=== PATIENT | male | born 1955 | race Caucasian/White ===

== ENCOUNTER 2016-08-11 16:39 | Emergency (ER) | payer BC ==
--- NOTE | 2016-08-11 18:36 | ER Document Report ---
ED General - General Chief Complaint: General Weakness Stated Complaint: WEAKNESS Time Seen by Provider: 08/11/16 17:01 Mode of Arrival: Medic Information source: Patient, Transfer Record Notes: This is a 61-year-old man with a history of dementia, hypertension is brought in by EMS [facility] for generalized weakness. TRAVEL OUTSIDE OF THE [place] IN LAST 30 DAYS: No - HPI Onset: Just prior to arrival Onset/Duration: Gradual Quality of pain: No pain Severity: None Pain Level: Denies Associated symptoms: denies: Chest pain, Fever, Shortness of breath Exacerbated by: Denies Relieved by: Denies Similar symptoms previously: No Recently seen / treated by doctor: No - Related Data Allergies/Adverse Reactions: atorvastatin calcium [From Lipitor] Allergy (Verified 07/04/15 20:44) gadobenate dimeglumine [From Multihance] Allergy (Verified 07/04/15 20:45) Penicillins Allergy (Verified 07/04/15 20:45) Anaphylaxis VAUGHN Inhibitors Adverse Reaction (Verified 07/04/15 20:45) Past Medical History - General Information source: Patient, Outside Facility Records - Social History Smoking Status: Never Smoker Cigarette use (# per day): No Chew tobacco use (# tins/day): No Frequency of alcohol use: None Drug Abuse: None Lives with: Long-Term Family History: Reviewed & Not Pertinent Patient has suicidal ideation: No Patient has homicidal ideation: No - Past Medical History Cardiac Medical History: Reports: Hx Hypertension Pulmonary Medical History: Reports: Hx Asthma, Hx Bronchitis Renal/ Medical History: Reports: Hx Renal Insufficiency Review of Systems - Review of Systems Constitutional: denies: Chills, Fever EENT: No symptoms reported Cardiovascular: No symptoms reported Respiratory: No symptoms reported Gastrointestinal: No symptoms reported Genitourinary: No symptoms reported Male Genitourinary: No symptoms reported Musculoskeletal: No symptoms reported Skin: No symptoms reported Hematologic/Lymphatic: No symptoms reported Neurological/Psychological: See HPI Physical Exam - Vital signs Vitals: Temp Pulse Resp BP Pulse Ox 97.9 F 60 16 183/100 H 100 08/11/16 16:54 08/11/16 16:54 08/11/16 16:54 08/11/16 16:54 08/11/16 16:54 Notes: Physical exam: GENERAL: 61-year-old man, alert and oriented 3, no acute distress HEAD: Atraumatic, normocephalic. EYES: Pupils equal round and reactive to light, extraocular movements intact, sclera anicteric, conjunctiva are normal. ENT: TMs normal, nares patent, oropharynx clear without exudates. Moist mucous membranes. NECK: Normal range of motion, supple without lymphadenopathy or JVD. LUNGS: Breath sounds clear to auscultation bilaterally and equal. No wheezes rales or rhonchi. HEART: Regular rate and rhythm without murmurs, rubs or gallops. ABDOMEN: Soft, normoactive bowel sounds. No tenderness to palpation. No guarding, no rebound. No masses appreciated. EXTREMITIES: Normal range of motion, no pitting or edema. No clubbing or cyanosis. NEUROLOGICAL: Cranial nerves II through XII grossly intact. Normal speech, normal gait. PSYCH: Normal mood, normal affect. SKIN: Warm, Dry, normal turgor, no rashes or lesions noted. Course - Vital Signs Vital signs: Temp Pulse Resp BP Pulse Ox 97.9 F 60 20 153/84 H 99 08/11/16 16:54 08/11/16 16:54 08/11/16 20:56 08/11/16 20:56 08/11/16 20:01 - Laboratory Result Diagrams: 08/11/16 18:26 08/11/16 19:59 Laboratory results interpreted by me: 08/11/16 19:59 Sodium 145.6 H Chloride 109 H - Diagnostic Test Radiology reviewed: Image reviewed, Reports reviewed - Patient has no infiltrates - EKG Interpretation by Me Rate: Normal Rhythm: NSR - Patient has sinus bradycardia with a ventricular rate of [address]-T wave changes. Discharge - Discharge Clinical Impression: Generalized weakness Condition: Stable Disposition: HOME, SELF-CARE Additional Instructions: Chest x-ray was clear. The urine test was normal. The blood work looked good tonight. Patient was given IV fluids and observed on heart monitor Recommendations: Current medicines. Follow-up with primary care doctor Return to the emergency room for any problems
--- NOTE | 2016-08-11 18:36 | RADIOLOGY REPORT (SQ) ---
EXAM DESCRIPTION: CHEST SINGLE VIEW COMPLETED DATE/TIME: 08/11/2016 6:26 pm REASON FOR STUDY: weakness COMPARISON: 07/04/2015 EXAM PARAMETERS: NUMBER OF VIEWS: One view. TECHNIQUE: Single frontal radiographic view of the chest acquired. RADIATION DOSE: NA LIMITATIONS: None. FINDINGS: LUNGS AND PLEURA: No opacities, masses or pneumothorax. No pleural effusion. MEDIASTINUM AND HILAR STRUCTURES: No masses. Contour normal. HEART AND VASCULAR STRUCTURES: Heart normal in size. Normal vasculature. BONES: No acute findings. HARDWARE: None in the chest. OTHER: No other significant finding. IMPRESSION: NO ACUTE RADIOGRAPHIC FINDING IN THE CHEST. TECHNICAL DOCUMENTATION: JOB ID: [id number]
[2016-08-11 18:39] LABS: ABSOLUTE EOSINOPHILS # (AUTO) 0.1 10^3/uL (0.0-0.6); ABSOLUTE LYMPHOCYTES (AUTO) 1.2 10^3/uL (0.5-4.7); ABSOLUTE MONOCYTES (AUTO) 0.5 10^3/uL (0.1-1.4); BASOPHILS % (AUTO) 0.6 % (0-2); HEMATOCRIT 42.7 % (37.9-51.0); HEMOGLOBIN 14.4 g/dL (13.5-17.0); HGB HCT DIFFERENCE 0.5; LYMPHOCYTES % (AUTO) 15.6 % (13-45); MEAN CORPUSCULAR HEMOGLOBIN 31.1 pg (27.0-33.4); MEAN CORPUSCULAR HGB CONC 33.6 g/dL (32.0-36.0); MEAN CORPUSCULAR VOLUME 92 fl (80-97); MONOCYTES % (AUTO) 6.1 % (3-13); RED BLOOD COUNT 4.63 10^6/uL (4.35-5.55); RED CELL DISTRIBUTION WIDTH 13.5 % (11.5-14.0); SEGMENTED NEUTROPHILS % (AUTO) 76.7 % (42-78); WHITE BLOOD COUNT 7.9 10^3/uL (4.0-10.5)
[2016-08-11 18:46] LABS: APPEARANCE,URINE CLEAR; BILIRUBIN,URINE NEGATIVE (NEGATIVE); GLUCOSE, URINE NEGATIVE (NEGATIVE); KETONES,URINE NEGATIVE (NEGATIVE); LEUKOCYTE ESTERASE,URINE NEGATIVE (NEGATIVE); NITRITE,URINE NEGATIVE (NEGATIVE); PROTEIN,URINE NEGATIVE (NEGATIVE); URINE SPECIFIC GRAVITY 1.006; UROBILINOGEN,URINE NEGATIVE mg/dL (<2.0)
[2016-08-11 20:34] LABS: ALANINE AMINOTRANSFERASE 33 U/L (21-72); ALBUMIN 4.2 g/dL (3.5-5.0); ALKALINE PHOSPHATASE 75 U/L (38-126); ANION GAP 13 (5-19); ASPARTATE AMINO TRANSFERASE 24 U/L (17-59); BILIRUBIN,DIRECT 0.3 mg/dL (0.0-0.4); BILIRUBIN,TOTAL 0.5 mg/dL (0.2-1.3); BLOOD UREA NITROGEN 16 mg/dL (7-20); CALCIUM 9.6 mg/dL (8.4-10.2); CARBON DIOXIDE 24 mmol/L (22-30); CHLORIDE 109 mmol/L (98-107); CREATINE KINASE 101 U/L (55-170); CREATININE RESULT 0.95 mg/dL (0.52-1.25); GLUCOSE 86 mg/dL (75-110); POTASSIUM 3.8 mmol/L (3.6-5.0); SODIUM 145.6 mmol/L (137-145); TOTAL PROTEIN 6.7 g/dL (6.3-8.2)
[2016-08-11 20:59] VITALS: BP 153/84
--- NOTE | 2016-08-11 22:23 | EKG REPORT ---
SEVERITY:- OTHERWISE NORMAL ECG - SINUS BRADYCARDIA ATRIAL PREMATURE COMPLEX : Confirmed by: Tasha Martinez 11-Aug-2016 22:22:56
== END 2016-08-11 21:42 | disposition home or self-care (01) ==
LOC: ER 16:39
DX: R53.1 Weakness (principal); R00.1 Bradycardia, unspecified; I10 Essential (primary) hypertension; J45.909 Unspecified asthma, uncomplicated; Z91.041 Radiographic dye allergy status; Z88.8 Allergy status to other drugs, medicaments and biological substances; Z87.892 Personal history of anaphylaxis; Z88.0 Allergy status to penicillin
CPT/HCPCS: 36415; 71010; 80053; 81001; 82550; 82553; 85025; 93005; 93010; 99285

== ENCOUNTER 2016-08-18 18:29 | Emergency (ER) | payer BC ==
[2016-08-18 19:33] LABS: ABSOLUTE BASOPHILS # (AUTO) 0.1 10^3/uL (0.0-0.2); ABSOLUTE EOSINOPHILS # (AUTO) 0.1 10^3/uL (0.0-0.6); ABSOLUTE LYMPHOCYTES (AUTO) 1.2 10^3/uL (0.5-4.7); ABSOLUTE MONOCYTES (AUTO) 0.5 10^3/uL (0.1-1.4); ABSOLUTE NEUT (AUTO) 5.8 10^3/uL (1.7-8.2); BASOPHILS % (AUTO) 0.7 % (0-2); EOSINOPHILS % (AUTO) 1.6 % (0-6); HEMATOCRIT 42.9 % (37.9-51.0); HEMOGLOBIN 14.7 g/dL (13.5-17.0); HGB HCT DIFFERENCE 1.2; LYMPHOCYTES % (AUTO) 15.5 % (13-45); MEAN CORPUSCULAR HEMOGLOBIN 31.6 pg (27.0-33.4); MEAN CORPUSCULAR HGB CONC 34.3 g/dL (32.0-36.0); MEAN CORPUSCULAR VOLUME 92 fl (80-97); RED BLOOD COUNT 4.67 10^6/uL (4.35-5.55); RED CELL DISTRIBUTION WIDTH 13.8 % (11.5-14.0); SEGMENTED NEUTROPHILS % (AUTO) 76.2 % (42-78); WHITE BLOOD COUNT 7.6 10^3/uL (4.0-10.5)
--- NOTE | 2016-08-18 19:45 | ER Document Report ---
ED General - General Chief Complaint: Probable Seizure Stated Complaint: POSSIBLE SEIZURE Time Seen by Provider: 08/18/16 18:43 Mode of Arrival: Medic Information source: Patient Notes: 61-year-old male history of seizure disorder presents from care facility was noted that he sat down and stated that he was going to have a seizure. Seizure was unwitnessed. Patient otherwise denied any other complaints, it was noted he is on [employer] TRAVEL OUTSIDE OF THE [place] IN LAST 30 DAYS: No - HPI Onset: Just prior to arrival Onset/Duration: Sudden Quality of pain: No pain Severity: None Pain Level: Denies Associated symptoms: Other - Feels tired Exacerbated by: Denies Relieved by: Denies Similar symptoms previously: Yes Recently seen / treated by doctor: Yes - Related Data Allergies/Adverse Reactions: atorvastatin calcium [From Lipitor] Allergy (Verified 08/18/16 18:48) gadobenate dimeglumine [From Multihance] Allergy (Verified 08/18/16 18:48) Penicillins Allergy (Verified 08/18/16 18:48) Anaphylaxis VAUGHN Inhibitors Adverse Reaction (Verified 08/18/16 18:48) Past Medical History - Social History Smoking Status: Never Smoker Cigarette use (# per day): No Chew tobacco use (# tins/day): No Smoking Education Provided: No Frequency of alcohol use: None Drug Abuse: None Family History: Reviewed & Not Pertinent Patient has suicidal ideation: No Patient has homicidal ideation: No - Past Medical History Cardiac Medical History: Reports: Hx Hypertension Pulmonary Medical History: Reports: Hx Asthma, Hx Bronchitis Renal/ Medical History: Reports: Hx Renal Insufficiency. Denies: Hx Peritoneal Dialysis - Immunizations Hx Diphtheria, Pertussis, Tetanus Vaccination: Yes Review of Systems - Review of Systems Notes: REVIEW OF SYSTEMS: CONSTITUTIONAL : Denies fever, chills, or sweats. Denies recent illness. EENT: Denies eye, ear, throat, or mouth pain or symptoms. Denies nasal or sinus congestion or discharge. Denies throat, tongue, or mouth swelling or difficulty swallowing. CARDIOVASCULAR: Denies chest pain. Denies palpitations or racing or irregular heart beat. Denies ankle edema. RESPIRATORY: Denies cough, cold, or chest congestion. Denies shortness of breath, difficulty breathing, or wheezing. GASTROINTESTINAL: Denies abdominal pain or distention. Denies nausea, vomiting , or diarrhea. Denies blood in vomitus, stools, or per rectum. Denies black, tarry stools. Denies constipation. GENITOURINARY: Denies difficulty urinating, painful urination, burning, frequency, blood in urine, or discharge. MUSCULOSKELETAL: Denies back or neck pain or stiffness. Denies joint pain or swelling. SKIN: Denies rash, lesions or sores. HEMATOLOGIC : Denies easy bruising or bleeding. LYMPHATIC: Denies swollen, enlarged glands. NEUROLOGICAL: This is a seizure-like episode PSYCHIATRIC: Denies anxiety or stress. Denies depression, suicidal ideation, or homicidal ideation. ALL OTHER SYSTEMS REVIEWED AND NEGATIVE. Dictation was performed using [employer] voice recognition software PHYSICAL EXAMINATION: GENERAL: Well-appearing, well-nourished and in no acute distress. HEAD: Atraumatic, normocephalic. EYES: Pupils equal round and reactive to light, extraocular movements intact, sclera anicteric, conjunctiva are normal. ENT: Nares patent, oropharynx clear without exudates. Moist mucous membranes. NECK: Normal range of motion, supple without lymphadenopathy LUNGS: Breath sounds clear to auscultation bilaterally and equal. No wheezes rales or rhonchi. HEART: Regular rate and rhythm without murmurs ABDOMEN: Soft, nontender, nondistended abdomen. No guarding, no rebound. No masses appreciated. Musculoskeletal: Normal range of motion, no pitting or edema. No cyanosis. NEUROLOGICAL: Cranial nerves grossly intact. Normal speech, normal gait. Normal sensory, motor exams PSYCH: Normal mood, normal affect. SKIN: Warm, Dry, normal turgor, no rashes or lesions noted. Physical Exam - Vital signs Vitals: Temp Pulse Resp BP Pulse Ox 98.4 F 56 L 20 173/95 H 98 08/18/16 18:49 08/18/16 18:49 08/18/16 18:49 08/18/16 18:49 08/18/16 18:49 Course - Re-evaluation Re-evalutation: 08/18/16 19:45 Lab work pending, given that patient has a history of seizure disorders I do not expect any life-threatening issues, the seizure itself was not witnessed however it is probable the patient had one and may be secondary to medication noncompliance 08/18/16 20:03 Lab work looks well at this time, I do not see any specific cause of the patient 's seizure which I does believe is secondary to his underlying history. Patient will be discharged at this time [facility] pending After performing a Medical Screening Examination, I estimate there is LOW risk for INTRACRANIAL HEMORRHAGE, ISCHEMIC CVA, MALIGNANT DYSRHYTHMIA, ACUTE CORONARY SYNDROME, MENINGITIS, PULMONARY EMBOLISM, or SEPSIS thus I consider the discharge disposition reasonable. I have reevaluated this patient multiple times and no significant life threatening changes are noted. The patient and I have discussed the diagnosis and risks, and we agree with discharging home with close follow-up with the understanding that symptoms and presentations can change. We also discussed returning to the Emergency Department immediately if new or worsening symptoms occur. We have discussed the symptoms which are most concerning (e.g., changing or worsening pain, weakness, vomiting, fever) that necessitate immediate return. - Vital Signs Vital signs: Temp Pulse Resp BP Pulse Ox 98.4 F 56 L 20 173/95 H 98 08/18/16 18:49 08/18/16 18:49 08/18/16 18:49 08/18/16 18:49 08/18/16 18:49 - Laboratory Result Diagrams: 08/18/16 19:17 08/18/16 19:17 Laboratory results interpreted by me: 08/18/16 19:17 Potassium 3.5 L Discharge - Discharge Clinical Impression: Seizure HTN (hypertension) Qualifiers: Hypertension type: essential hypertension Qualified Code(s): I10 - Essential ( primary) hypertension Condition: Stable Disposition: HOME, SELF-CARE Instructions: Seizure, Known Epileptic ([facility]) Additional Instructions: Follow up with your physician tomorrow for further care or return to the ED IMMEDIATELY if symptoms worsen or new concerns occur. If you cannot afford to follow up with your primary care physician a list of low cost clinics have been provided at the end of your discharge papers as well.
[2016-08-18 19:50] LABS: ALANINE AMINOTRANSFERASE 35 U/L (21-72); ALKALINE PHOSPHATASE 76 U/L (38-126); ANION GAP 10 (5-19); ASPARTATE AMINO TRANSFERASE 32 U/L (17-59); BILIRUBIN,DIRECT 0.3 mg/dL (0.0-0.4); BILIRUBIN,TOTAL 0.6 mg/dL (0.2-1.3); BLOOD UREA NITROGEN 17 mg/dL (7-20); CALCIUM 9.3 mg/dL (8.4-10.2); CARBON DIOXIDE 28 mmol/L (22-30); CHLORIDE 107 mmol/L (98-107); CREATININE RESULT 0.97 mg/dL (0.52-1.25); GLUCOSE 84 mg/dL (75-110); POTASSIUM 3.5 mmol/L (3.6-5.0); SODIUM 144.8 mmol/L (137-145); TOTAL PROTEIN 6.5 g/dL (6.3-8.2)
[2016-08-18 21:32] VITALS: BP 146/77
== END 2016-08-18 20:50 | disposition home or self-care (01) ==
LOC: ER 18:29
DX: G40.909 Epilepsy, unspecified, not intractable, without status epilepticus (principal); I10 Essential (primary) hypertension; J45.909 Unspecified asthma, uncomplicated; Z79.899 Other long term (current) drug therapy; Z88.8 Allergy status to other drugs, medicaments and biological substances; Z87.892 Personal history of anaphylaxis; Z88.0 Allergy status to penicillin
CPT/HCPCS: 36415; 80053; 85025; 99284

== ENCOUNTER 2016-08-20 00:10 | Emergency (ER) | payer BC ==
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
[2016-08-20] MEDS ORDERED: LORAZEPAM INJ 2 MG/1 ML VIAL ONE (01:07)
[2016-08-20 03:54] VITALS: BP 147/92
== END 2016-08-20 03:53 | disposition home or self-care (01) ==
LOC: ER 00:10
DX: R56.9 Unspecified convulsions (principal); F03.91 Unspecified dementia, unspecified severity, with behavioral disturbance; R53.1 Weakness
CPT/HCPCS: 99283

== ENCOUNTER 2016-08-23 01:20 | Emergency (ER) | payer BC ==
[2016-08-23] MEDS ORDERED: DIPH/PERTUSS(ACELL)/TETANUS VAC/PF 0.5 ML SYR (>=10YO) IM ONE (01:37)
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
[2016-08-23 03:11] VITALS: BP 132/71
== END 2016-08-23 03:15 ==
LOC: ER 01:20
DX: S40.812A Abrasion of left upper arm, initial encounter (principal); S40.811A Abrasion of right upper arm, initial encounter; S00.412A Abrasion of left ear, initial encounter; S10.91XA Abrasion of unspecified part of neck, initial encounter; F03.90 Unspecified dementia, unspecified severity, without behavioral disturbance, psychotic disturbance, mood disturbance, and anxiety; Y04.0XXA Assault by unarmed brawl or fight, initial encounter; Y92.129 Unspecified place in nursing home as the place of occurrence of the external cause; I10 Essential (primary) hypertension; Z23 Encounter for immunization; Z88.0 Allergy status to penicillin
CPT/HCPCS: 90471; 90715; 99284

== ENCOUNTER 2016-09-05 12:01 | Emergency (ER) | payer BC ==
--- NOTE | 2016-09-05 12:14 | ER Document Report ---
ED Psych Disorder / Suicide <BENOIT SEWELL - Last Filed: 09/05/16 15:16> - General Mode of Arrival: Medic Information source: Patient TRAVEL OUTSIDE OF THE [place]. IN LAST 30 DAYS: No <AUREA HUBBARD - Last Filed: 09/05/16 16:07> - General Chief Complaint: Psych Problem Stated Complaint: IVC W/PAPERS Time Seen by Provider: 09/05/16 12:14 Notes: 61 yo male resident of [facility] with known dx MS, dementia, encephalopathy, seizure was sent from [facility] with IVC paperwork because he is a danger to self by turning furniture over, violent behavior. c/o feet pain. He thinks he liveds with his sister, does not know the day. Vitals stable, follows commands but has intentional tremors. Does not know his doctor. Previously sent to [facility] ER 3 times in july with difficult behavior. Dr. Rodrigues report APS with concerns about facility treatment. States his feet hurt. ( AUREA HUBBARD) - HPI Notes: Conducted initial psychiatric evaluation on 09/05/2016 at 1410. Patient is a 61 year old male who presented to the ED today via [facility], petitioned for IVC by [facility] for increased aggression and agitation. Most information has been obtained from collateral, worker at [facility] (See Tj Gonzalez's ED Mental Health note). He reportedly threw things around his room and has bruises from doing so, has been taking things apart (door and window frames), and flipping bed. He has a documented medical history of MS, Dementia, Encephalopathy, and Seizure Disorder. Home medications include a BP medication, a inhaler, Keppra 500MG BID, and Vistaril 25MG PRN. He has no documented MH history. He has a scheduled appointment tomorrow (12/07/2016) at 0800 at [facility] for medication management. Patient has been residing at [facility] since 07/11/2016. He started out with general confusion. Chart review had a head CT dated 07/04/2015 with the following findings: prominent ventricles, areas of low density in the white matter most likely due to chronic micro-vascular ischemic changes, and age related involutional changes. Language consistent with neuro-degenerative processes like that found in dementia. Patient was alert. He knew he resided at [facility]. He was able to recall his birthday. He had been calm and cooperative while in the ED, allowing medical staff to obtain all necessary lab work. He denied SI/HI. He did not appear to be responding to internal stimuli AEB fair eye contact and answering questions appropriately when addressed. Thought processes are impaired due to neuro-degenerative processes. Conversational speech was soft in tone and somewhat mumbled at times. Intellectual abilities are impaired due to neuro- degenerative processes. Insight, judgment and impulse control are impaired but considered baseline due to neuro-degenerative processes. 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 Patient does not meet [place] [address] [address] [address] IVC criteria. He has documented dementia with no MH history. He denied SI/ HI and there is no observed psychosis. He has been calm and cooperative in the ED. Per [facility] he has an outpatient appointment at [facility] tomorrow () at 0800 at [facility]. This provider is the one who will provide medication adjustments based on patient's presentation, recent behaviors, and documented dementia. Consulted with Dr. Aragon regarding the management and care of patient. (BENOIT SEWELL) - Related Data Allergies/Adverse Reactions: atorvastatin calcium [From Lipitor] Allergy (Verified 08/18/16 18:48) gadobenate dimeglumine [From Multihance] Allergy (Verified 08/18/16 18:48) Penicillins Allergy (Verified 08/18/16 18:48) Anaphylaxis VAUGHN Inhibitors Adverse Reaction (Verified 08/18/16 18:48) Past Medical History - General Information source: Patient - Social History Smoking Status: Unknown if Ever Smoked Frequency of alcohol use: None Drug Abuse: None Lives with: Other - [facility] Family History: Reviewed & Not Pertinent - Past Medical History Cardiac Medical History: Reports: Hx Hypertension Pulmonary Medical History: Reports: Hx Asthma, Hx Bronchitis Neurological Medical History: Reports: Other - dementia Renal/ Medical History: Reports: Hx Renal Insufficiency. Denies: Hx Peritoneal Dialysis Psychiatric Medical History: Reports: Hx Dementia Surgical Hx: Negative - Immunizations Hx Diphtheria, Pertussis, Tetanus Vaccination: Yes <AUREA HUBBARD - Last Filed: 09/05/16 16:07> Review of Systems - Review of Systems Constitutional: No symptoms reported EENT: No symptoms reported Cardiovascular: No symptoms reported Respiratory: No symptoms reported Gastrointestinal: No symptoms reported Genitourinary: No symptoms reported Male Genitourinary: No symptoms reported Musculoskeletal: See HPI Skin: No symptoms reported Hematologic/Lymphatic: No symptoms reported Neurological/Psychological: No symptoms reported <AUREA HUBBARD - Last Filed: 09/05/16 16:07> Physical Exam <BENOIT SEWELL - Last Filed: 09/05/16 15:16> - Vital signs Interpretation: Normal - General General appearance: Appears well, Other - sleepy - HEENT Head: Normocephalic, Atraumatic Eyes: Normal Conjunctiva: Normal Pupils: PERRL Mouth/Lips: Normal Mucous membranes: Dry Pharynx: Normal Neck: Supple. No: Lymphadenopathy - Respiratory Respiratory status: No respiratory distress Chest status: Nontender Breath sounds: Normal Chest palpation: Normal - Cardiovascular Rhythm: Regular Heart sounds: Normal auscultation Murmur: No - Abdominal Inspection: Normal Distension: No distension Bowel sounds: Normal Tenderness: Nontender. No: Tender Organomegaly: No organomegaly - Back Back: Normal, Nontender. No: CVA tenderness - Extremities General upper extremity: Normal inspection, Nontender, Normal color, Normal ROM , Normal temperature General lower extremity: Normal inspection, Nontender, Normal color, Normal ROM , Normal temperature, Normal weight bearing. No: Benedict's sign Ankle: Tender Foot: Tender, Other - red vasculitis type rash to both ankles - Neurological Neuro grossly intact: Yes Cognition: Normal Orientation: AAOx4 [place] Coma Scale Eye Opening: Spontaneous Fritz Coma Scale Verbal: Oriented [place] Coma Scale Motor: Obeys Commands [place] Coma Scale Total: 15 Speech: Normal Motor strength normal: LUE, RUE, LLE, RLE Sensory: Normal - Psychological Associated symptoms: Normal affect, Normal mood - Skin Skin Temperature: Warm Skin Moisture: Dry Skin Color: Normal <AUREA HUBBARD - Last Filed: 09/05/16 16:07> - Vital signs Vitals: Temp Pulse Resp BP Pulse Ox 98.0 F 53 L 16 129/83 H 97 09/05/16 12:16 09/05/16 12:16 09/05/16 12:16 09/05/16 12:16 09/05/16 12:16 - General Notes: calm (AUREA HUBBARD) Course - Laboratory Result Diagrams: 09/05/16 12:39 09/05/16 12:39 <BENOIT SEWELL - Last Filed: 09/05/16 15:16> - Laboratory Result Diagrams: 09/05/16 12:39 09/05/16 12:39 - EKG Interpretation by Me EKG shows normal: Sinus rhythm Rate: Bradycardia - rate 51 <AUREA HUBBARD - Last Filed: 09/05/16 16:07> - Re-evaluation Re-evalutation: 09/05/16 14:55 dr. alarcon examined the pts legs also, OK with the clindamycin, and since platelets normal on CBC, can be discharged back to [facility]. pending urine results 09/05/16 15:54 other labs are negative. tox negative, urine negative. 09/05/16 16:06 friendly is going to get the pt but he is up pacing and wanting to walk out, getting angry. Hydroxyzine ordered. IM (AUREA HUBBARD) - Vital Signs Vital signs: Temp Pulse Resp BP Pulse Ox 98.0 F 53 L 16 129/83 H 97 09/05/16 12:16 09/05/16 12:16 09/05/16 12:16 09/05/16 12:16 09/05/16 12:16 - Laboratory Laboratory results interpreted by me: 09/05/16 09/05/16 09/05/16 12:39 12:39 14:30 RBC 4.27 L Hgb 13.4 L Seg Neutrophils % 82.8 H Lymphocytes % 10.4 L Potassium 3.5 L Urine Ketones TRACE H Urine Blood SMALL H Salicylates < 1.0 L Acetaminophen < 10 L Discharge <BENOIT SEWELL - Last Filed: 09/05/16 15:16> <AUREA HUBBARD - Last Filed: 09/05/16 16:07> - Discharge Clinical Impression: bilateral lower leg peripheral edema, cellulitis ankles/feet, Aggression aggravated Condition: Fair Disposition: HOME, SELF-CARE Instructions: Elevate the Injury ([facility]), Cellulitis ([facility]), Clindamycin ([facility]) Additional Instructions: Dementia The exam shows a decrease in mental ability called dementia. Signs of dementia include a gradual loss of memory and a decreased ability to reason and solve problems. Personality changes, hostility, lack of self-care, and loss of bladder or bowel control are later signs of dementia. In these later stages, patients may become confused, lost, fearful, or agitated, even in familiar places. Alzheimer's disease is the most common type of dementia. It has no known cause or specific treatment. Other causes include alcohol and drug abuse, medication effects (especially tranquilizers and sleeping pills), strokes, head injuries, and brain tumors. Sometimes severe depression in an elderly person is mistaken for dementia, and this can be treated if recognized. A complete medical evaluation and ongoing care with a doctor is important. Most people with dementia need help or supervision with daily living. Some may be able to live independently with occasional help; others require foster care or even care home placement. Alcohol, sedatives, and antihistamines may make the symptoms worse and should be avoided. Alzheimer's disease support groups are available in some communities and can be very valuable to the entire family. Prescription medication can ease the symptoms of Alzheimer's disease in some patients. Please arrange for medical follow-up. Return here if there is a sudden change in mental function, inability to move an arm or leg, inability to speak, fever, or any other significant change. You should go to your already scheduled appointment at [facility] tomorrow (09/06/2016 ) at 0800. 1. elevate the legs to reduce the swelling 2. take the clindamycin for the infection in the ankle skin 3 return to er if increased pain or fever Prescriptions: Clindamycin HCl [Cleocin 150 mg Capsule] 300 mg PO TID #42 capsule Referrals: [facility] [Outside] - 09/06/16 8:00 am
[2016-09-05 12:26] VITALS: BP 129/83
[2016-09-05] MEDS ORDERED: CLINDAMYCIN HCL 150 MG CAPSULE PO ONE (12:29)
[2016-09-05 12:47] LABS: ABSOLUTE BASOPHILS # (AUTO) 0.1 10^3/uL (0.0-0.2); ABSOLUTE EOSINOPHILS # (AUTO) 0.1 10^3/uL (0.0-0.6); ABSOLUTE LYMPHOCYTES (AUTO) 0.9 10^3/uL (0.5-4.7); ABSOLUTE MONOCYTES (AUTO) 0.5 10^3/uL (0.1-1.4); ABSOLUTE NEUT (AUTO) 7.4 10^3/uL (1.7-8.2); BASOPHILS % (AUTO) 0.7 % (0-2); EOSINOPHILS % (AUTO) 0.9 % (0-6); HEMATOCRIT 39.6 % (37.9-51.0); HEMOGLOBIN 13.4 g/dL (13.5-17.0); HGB HCT DIFFERENCE 0.6; LYMPHOCYTES % (AUTO) 10.4 % (13-45); MEAN CORPUSCULAR HEMOGLOBIN 31.5 pg (27.0-33.4); MEAN CORPUSCULAR VOLUME 93 fl (80-97); MONOCYTES % (AUTO) 5.2 % (3-13); RED BLOOD COUNT 4.27 10^6/uL (4.35-5.55); RED CELL DISTRIBUTION WIDTH 13.4 % (11.5-14.0); SEGMENTED NEUTROPHILS % (AUTO) 82.8 % (42-78); WHITE BLOOD COUNT 8.9 10^3/uL (4.0-10.5)
--- NOTE | 2016-09-05 12:56 | EKG REPORT ---
SEVERITY:- NORMAL ECG - SINUS RHYTHM : Confirmed by: Brayden Lozano MD 05-Sep-2016 12:55:19
[2016-09-05 13:17] LABS: ALANINE AMINOTRANSFERASE 36 U/L (21-72); ALBUMIN 3.8 g/dL (3.5-5.0); ALKALINE PHOSPHATASE 73 U/L (38-126); ANION GAP 9 (5-19); ASPARTATE AMINO TRANSFERASE 28 U/L (17-59); BILIRUBIN,DIRECT 0.3 mg/dL (0.0-0.4); BILIRUBIN,TOTAL 0.6 mg/dL (0.2-1.3); BLOOD UREA NITROGEN 20 mg/dL (7-20); CALCIUM 8.9 mg/dL (8.4-10.2); CARBON DIOXIDE 27 mmol/L (22-30); CHLORIDE 107 mmol/L (98-107); CREATININE RESULT 0.92 mg/dL (0.52-1.25); GLUCOSE 83 mg/dL (75-110); POTASSIUM 3.5 mmol/L (3.6-5.0); SODIUM 143.2 mmol/L (137-145); TOTAL PROTEIN 6.4 g/dL (6.3-8.2)
[2016-09-05 13:19] LABS: ALCOHOL < 10 mg/dL (NONE DETECTED)
[2016-09-05 15:06] LABS: APPEARANCE,URINE CLEAR; BILIRUBIN,URINE NEGATIVE (NEGATIVE); GLUCOSE, URINE NEGATIVE (NEGATIVE); KETONES,URINE TRACE mg/dL (NEGATIVE); LEUKOCYTE ESTERASE,URINE NEGATIVE (NEGATIVE); NITRITE,URINE NEGATIVE (NEGATIVE); PROTEIN,URINE NEGATIVE (NEGATIVE); URINE SPECIFIC GRAVITY 1.023; UROBILINOGEN,URINE NEGATIVE mg/dL (<2.0)
[2016-09-05 15:23] LABS: URINE BARBITURATES SCREEN NEGATIVE; URINE METHADONE SCREEN NEGATIVE; URINE OPIATES LOW NEGATIVE; URINE PHENCYCLIDINE SCREEN NEGATIVE
[2016-09-05] MEDS ORDERED: HYDROXYZINE HCL INJ 50 MG/1 ML VIAL IM ONE (16:00)
== END 2016-09-05 17:07 | disposition home or self-care (01) ==
LOC: ER 12:01
DX: L03.116 Cellulitis of left lower limb (principal); L03.115 Cellulitis of right lower limb; R60.0 Localized edema; F91.9 Conduct disorder, unspecified; G35 Multiple sclerosis; F03.90 Unspecified dementia, unspecified severity, without behavioral disturbance, psychotic disturbance, mood disturbance, and anxiety; Z79.899 Other long term (current) drug therapy
CPT/HCPCS: 93005; 99284; 96372; 36415; 80307 ×4; 85025; 80053; 81001; 93010; J3490

== ENCOUNTER 2016-09-08 15:03 | Emergency (ER) | payer BC ==
--- NOTE | 2016-09-08 15:09 | ER Document Report ---
ED General - General Chief Complaint: Psych Problem Stated Complaint: PSYCH EVAL Time Seen by Provider: 09/08/16 15:05 Notes: The patient is a 61 yo male, PMHx MS, Dementia, Encephalopathy, and Seizure Disorder, presents from [facility] after he was having jerking motions. Patient will stop when he is asked. Patient was given his Keppra dose this morning and there is no missed doses according to the intermediate records. Patient has become increasingly agitated and violent in the intermediate. There are reports of him punching a wall. Patient denies any complaints at this time. TRAVEL OUTSIDE OF THE [place] IN LAST 30 DAYS: No - Related Data Allergies/Adverse Reactions: atorvastatin calcium [From Lipitor] Allergy (Verified 08/18/16 18:48) gadobenate dimeglumine [From Multihance] Allergy (Verified 08/18/16 18:48) Penicillins Allergy (Verified 08/18/16 18:48) Anaphylaxis VAUGHN Inhibitors Adverse Reaction (Verified 08/18/16 18:48) Past Medical History - General Information source: Patient, Emergency Med Personnel - Social History Smoking Status: Unknown if Ever Smoked Family History: Reviewed & Not Pertinent - Past Medical History Cardiac Medical History: Reports: Hx Hypertension Pulmonary Medical History: Reports: Hx Asthma, Hx Bronchitis Renal/ Medical History: Reports: Hx Renal Insufficiency. Denies: Hx Peritoneal Dialysis Psychiatric Medical History: Reports: Hx Dementia - Immunizations Hx Diphtheria, Pertussis, Tetanus Vaccination: Yes Review of Systems - Review of Systems Notes: REVIEW OF SYSTEMS: CONSTITUTIONAL: -fevers, -chills EENT: -eye pain, -difficulty swallowing, -nasal congestion CARDIOVASCULAR:-chest pain, -syncope. RESPIRATORY: -cough, -SOB GASTROINTESTINAL: -abdominal pain, - nausea, -vomiting, -diarrhea GENITOURINARY: -dysuria, -hematuria MUSCULOSKELETAL: -back pain, -neck pain SKIN: -rash or skin lesions. HEMATOLOGIC: -easy bruising or bleeding. LYMPHATIC: -swollen, enlarged glands. NEUROLOGICAL: -altered mental status or loss of consciousness, -headache, + jerking movements PSYCHIATRIC: -anxiety, -depression. ALL OTHER SYSTEMS REVIEWED AND NEGATIVE. Physical Exam - Notes Notes: PHYSICAL EXAMINATION: GENERAL: Well-appearing, well-nourished and in no acute distress. HEAD: Atraumatic, normocephalic. EYES: Pupils equal round and reactive to light, extraocular movements intact, sclera anicteric, conjunctiva are normal. ENT: nares patent, oropharynx clear without exudates. Moist mucous membranes. NECK: Normal range of motion, supple without lymphadenopathy LUNGS: Breath sounds clear to auscultation bilaterally and equal. No wheezes rales or rhonchi. HEART: Regular rate and rhythm without murmurs ABDOMEN: Soft, nontender, normoactive bowel sounds. No guarding, no rebound. No masses appreciated. EXTREMITIES: Normal range of motion, no pitting or edema. No cyanosis. NEUROLOGICAL: Cranial nerves grossly intact. Normal speech, normal gait. Normal sensory and motor exams. Jerking motions, but will stop when asked to stop. PSYCH: Normal mood, normal affect. SKIN: Warm, Dry, normal turgor, no rashes or lesions noted. Course - Re-evaluation Re-evalutation: Do not suspect a seizure at this time. He has the jerking motions, but will stop and able to respond during these movements. He has not missed any Keppra doses. Spoke to [facility] and patient is unable to return due to very violent behavior. Spoke to case management, Leandro, and she will help make arrangements for placement. We will continue his home Keppra. Discharge - Discharge Clinical Impression: Jerking movements of extremities Condition: Stable Disposition: HOME, SELF-CARE Additional Instructions: It does not appear that you are having a seizure today. Continue your Keppra as prescribed. Seizure, Known Epileptic You have had a seizure. Seizures may "break through" in an epileptic due to stress of infection or injury, a change in blood chemistry, or drug and alcohol use. Another common cause is failure to take medication as prescribed. Your doctor has evaluated your situation for the likely cause of this seizure. It is important that you follow his advice concerning any medication changes and follow-up care. Further testing of anti-seizure medication levels in your blood may be necessary. If you have a cab driver's license, it's important that you DO NOT DRIVE until given permission by your physician. This seizure must be reported to the cab driver 's license bureau. Call the doctor or return if seizures recur, or if new or unusual symptoms arise -- such as severe headache, confusion, excessive sleepiness, local weakness or numbness, neck stiffness, or fever. Referrals: RAMBO CUMMINGS MD [ACTIVE STAFF] - Follow up as needed
[2016-09-08] MEDS ORDERED: LEVETIRACETAM 500 MG TABLET PO ONE (15:10)
[2016-09-08] MEDS ORDERED: HALOPERIDOL LACTATE INJ 5 MG/1 ML VIAL IM ONE (21:07)
[2016-09-08] MEDS: LEVETIRACETAM 500 MG TABLET PO SCH (21:25)
[2016-09-09] MEDS: NIFEDIPINE 30 MG TAB.ER.24 PO SCH (09:11)
[2016-09-09] MEDS: LEVETIRACETAM 500 MG TABLET PO SCH ×2 (09:12→21:25)
[2016-09-09] MEDS ORDERED: LEVETIRACETAM 500 MG TABLET PO SCH (10:00)
[2016-09-09] MEDS ORDERED: CLINDAMYCIN HCL 150 MG CAPSULE PO SCH (10:00)
[2016-09-09] MEDS ORDERED: ALBUTEROL SULFATE HFA (90 MCG/PUFF) 8 GM MDI (1 MDI/ER DISP) IH SCH (12:00)
[2016-09-09] MEDS: ALBUTEROL SULFATE HFA (90 MCG/PUFF) 200 PUFF/8.5 GM MDI IH SCH ×3 (13:22→23:40)
[2016-09-09] MEDS: CLINDAMYCIN HCL 150 MG CAPSULE PO SCH ×2 (13:22→21:25)
--- NOTE | 2016-09-09 15:22 | ER Document Report ---
Doctor's Note Notes: 09/09/16 15:22 Patient evaluated resting comfortably easily arousable no complaints at this time
[2016-09-09] MEDS: HYDROXYZINE PAMOATE 25 MG CAPSULE PO PRN (17:19)
[2016-09-10] MEDS: CLINDAMYCIN HCL 150 MG CAPSULE PO SCH ×3 (06:46→21:02)
[2016-09-10] MEDS: ALBUTEROL SULFATE HFA (90 MCG/PUFF) 200 PUFF/8.5 GM MDI IH SCH ×3 (06:46→17:30)
[2016-09-10] MEDS: HYDROXYZINE PAMOATE 25 MG CAPSULE PO PRN (09:42)
[2016-09-10] MEDS: NIFEDIPINE 30 MG TAB.ER.24 PO SCH (09:42)
[2016-09-10] MEDS: LEVETIRACETAM 500 MG TABLET PO SCH ×2 (09:43→21:03)
[2016-09-11] MEDS: ALBUTEROL SULFATE HFA (90 MCG/PUFF) 200 PUFF/8.5 GM MDI IH SCH ×5 (00:29→23:07)
[2016-09-11] MEDS: CLINDAMYCIN HCL 150 MG CAPSULE PO SCH ×3 (06:40→21:50)
[2016-09-11] MEDS: LEVETIRACETAM 500 MG TABLET PO SCH ×2 (09:39→21:50)
[2016-09-11] MEDS: NIFEDIPINE 30 MG TAB.ER.24 PO SCH (09:39)
[2016-09-11] MEDS: HYDROXYZINE PAMOATE 25 MG CAPSULE PO PRN (09:39)
[2016-09-12] MEDS: CLINDAMYCIN HCL 150 MG CAPSULE PO SCH ×3 (06:18→21:25)
[2016-09-12] MEDS: HYDROXYZINE PAMOATE 25 MG CAPSULE PO PRN (06:19)
[2016-09-12] MEDS: ALBUTEROL SULFATE HFA (90 MCG/PUFF) 200 PUFF/8.5 GM MDI IH SCH ×3 (06:20→17:46)
[2016-09-12] MEDS: NIFEDIPINE 30 MG TAB.ER.24 PO SCH (09:47)
[2016-09-12] MEDS: LEVETIRACETAM 500 MG TABLET PO SCH ×2 (09:48→21:25)
--- NOTE | 2016-09-12 15:49 | ER Document Report ---
Doctor's Note Notes: 09/12/16 15:48 Patient reevaluated vital signs have remained stable. Patient states all of his needs being met states that the food is very delicious. Currently waiting for disposition
[2016-09-13] MEDS: ALBUTEROL SULFATE HFA (90 MCG/PUFF) 200 PUFF/8.5 GM MDI IH SCH ×5 (00:04→23:11)
[2016-09-13] MEDS: CLINDAMYCIN HCL 150 MG CAPSULE PO SCH ×3 (05:11→23:11)
[2016-09-13] MEDS: HYDROXYZINE PAMOATE 25 MG CAPSULE PO PRN (09:49)
[2016-09-13] MEDS: LEVETIRACETAM 500 MG TABLET PO SCH ×2 (09:49→23:11)
[2016-09-13] MEDS: NIFEDIPINE 30 MG TAB.ER.24 PO SCH (09:50)
--- NOTE | 2016-09-13 12:58 | ER Document Report ---
Doctor's Note Notes: 09/13/16 12:58 Patient still is currently waiting for placement. Evaluation patient has no complaints at this time vital signs do remain stable.
[2016-09-14] MEDS ORDERED: LORAZEPAM INJ 2 MG/1 ML VIAL IM ONE (00:36)
[2016-09-14] MEDS ORDERED: DIPHENHYDRAMINE HCL 50 MG/ML VIAL IM ONE (00:36)
[2016-09-14] MEDS: CLINDAMYCIN HCL 150 MG CAPSULE PO SCH ×3 (05:23→23:09)
[2016-09-14] MEDS: ALBUTEROL SULFATE HFA (90 MCG/PUFF) 200 PUFF/8.5 GM MDI IH SCH ×4 (05:23→23:09)
--- NOTE | 2016-09-14 09:31 | PSYCHOLOGICAL NOTE ---
Psych Note - Psych Note Psych Note: 61-year-old male with a history of dementia. Patient has no complaints this a.m. Appears resting comfortably with his family at the bedside. Vital signs are stable.
[2016-09-14] MEDS: LEVETIRACETAM 500 MG TABLET PO SCH ×2 (10:28→23:11)
[2016-09-14] MEDS: HYDROXYZINE PAMOATE 25 MG CAPSULE PO PRN (10:28)
[2016-09-14] MEDS: NIFEDIPINE 30 MG TAB.ER.24 PO SCH (10:31)
[2016-09-14] MEDS ORDERED: HYDROXYZINE PAMOATE 50 MG CAPSULE PO ONE (14:35)
[2016-09-15] MEDS ORDERED: HALOPERIDOL 5 MG TABLET PO ONE (01:07)
[2016-09-15] MEDS: HYDROXYZINE PAMOATE 25 MG CAPSULE PO PRN (04:26)
[2016-09-15] MEDS: CLINDAMYCIN HCL 150 MG CAPSULE PO SCH ×3 (08:31→21:56)
[2016-09-15] MEDS: ALBUTEROL SULFATE HFA (90 MCG/PUFF) 200 PUFF/8.5 GM MDI IH SCH ×3 (08:32→18:10)
[2016-09-15] MEDS: LEVETIRACETAM 500 MG TABLET PO SCH ×2 (11:34→21:56)
[2016-09-15] MEDS: NIFEDIPINE 30 MG TAB.ER.24 PO SCH (14:10)
[2016-09-16] MEDS: ALBUTEROL SULFATE HFA (90 MCG/PUFF) 200 PUFF/8.5 GM MDI IH SCH ×3 (00:05→12:12)
[2016-09-16] MEDS: CLINDAMYCIN HCL 150 MG CAPSULE PO SCH (05:44)
[2016-09-16] MEDS: LEVETIRACETAM 500 MG TABLET PO SCH (09:38)
[2016-09-16] MEDS: NIFEDIPINE 30 MG TAB.ER.24 PO SCH (09:39)
--- NOTE | 2016-09-16 13:25 | ER Document Report ---
Doctor's Note Notes: 09/16/16 13:23 Spoke with patient who has no complaints except he does not want to be switched to another place to live. When I tried to discuss with him that [facility] will not allow him to to return due to concerns of violence patient stated he did not want to return there he wanted to return to the other place that he lived, patient could not clarify or specify what the other place that he lives was. I then told patient that if he could remember the names of any specific places he like to go we could certainly discuss them with Leandro Lee the ER nurse and case checker who is working on his case, at that point patient states that he does not want to go anywhere he wants to stay in this room forever. Patient is unaware of the fact that he is in the hospital when questioned. There are no medical concerns with this patient at this time. Patient is stable from a medical standpoint for discharge or transfer. Mental health has also been consulted, they will see the patient however they are concerned that we have as needed Vistaril ordered however does not seem to be given instead his behavioral issues are being addressed with Ativan and Haldol. Today we will make an effort to address any behavioral issues with as needed Vistaril rather than using benzodiazepines. 09/16/16 16:10 After mental health evaluation mental health team still recommends avoiding benzodiazepines and antipsychotics, recommend using Vistaril as already ordered. Patient is psychiatrically cleared. Remains an issue for placement via case checker. 09/16/16 18:12 Patient was originally evaluated by Ajit Nguyen from [facility], initially appears to be a candidate for transfer to their facility however patient is currently stating that he does not want to go. I did discuss the patient with Leola Loo from case management to discuss the patient with Leandro Lee and Eric Escamilla, currently there are some questions as to whether or not the patient is a candidate for transfer after all, Ajit Nguyen his heavy equipment plumbing supervisor will be coming in tomorrow morning in order to reevaluate the patient and see if they can transfer him to their facility. If he is transferred I have written prescriptions for 2 days worth of his chronic medications including Procardia, Vistaril, Keppra, albuterol. This will be prescribed as a 2 day bridge to get him through until [place] when the assisted living facility pharmacy is open. Will remain in our facility overnight.
--- NOTE | 2016-09-16 16:09 | ER Document Report ---
ED Psych Disorder / Suicide - General Chief Complaint: Probable Seizure Stated Complaint: PSYCH EVAL Time Seen by Provider: 09/08/16 15:05 TRAVEL OUTSIDE OF THE [place] IN LAST 30 DAYS: No - HPI Notes: Psychiatric re-consultation requested because of concern of increased flat affect. Patient was seen 09/05/2016: it was identified the patient did not not meet [place] [address] [address] 122C IVC criteria. He has documented dementia with no MH history. He denied SI/HI and there is no observed psychosis. He has been calm and cooperative in the ED. Medication adjustments were submitted based on patient's presentation, recent behaviors, and documented dementia. Patient's medication recommendations provided by the Behavioral Health Team include Keppra 500mg BID and Vistaril 25mg QD PRN. Patient is not recommended to receive any antipsychotics or benzodiazipines as these are known to increase behavioral symptoms of vascular neurocognitive disorder. Patient's presentation of increased flat affect can also be attributed to antipsychotic and benzodiazipine medication as the patient has received Ativan and Haldol for the last two evenings. Patient was alert. He had been calm and cooperative while in the ED, allowing medical staff to obtain all necessary lab work. He deneied SI/HI. He did not appear to be responding to internal stimuli AEB fair eye contact and answering questions appropriately when addressed. Thought processes are impaired due to neuro-degenerative processes. Conversational speech was soft in tone and somewhat mumbled at times. Intellectual abilities are impaired due to neuro- degenerative processes. Insight, judgment and impulse control are impaired but considered baseline due to neuro-degenerative processes. 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 Patient does not meet IVC criteria per [facility]. Patient is not recommended to receive any antipsychotics or benzodiazipines as these are known to increase behavioral symptoms of vascular neurocognitive disorder. Patient's presentation of increased flat affect can also be attributed to antipsychotic and benzodiazipine medication as the patient has received Ativan and Haldol for the last two evenings. - Related Data Allergies/Adverse Reactions: atorvastatin calcium [From Lipitor] Allergy (Verified 08/18/16 18:48) gadobenate dimeglumine [From Multihance] Allergy (Verified 08/18/16 18:48) Penicillins Allergy (Verified 08/18/16 18:48) Anaphylaxis VAUGHN Inhibitors Adverse Reaction (Verified 08/18/16 18:48) Home Medications: Current Home Medications Albuterol Sulfate [Ventolin Hfa] 90 mcg IH Q6 09/08/16 [History] Hydroxyzine Pamoate 25 mg PO DAILY PRN 09/08/16 [History] Levetiracetam [Keppra 500 mg Tablet] 500 mg PO BID 09/08/16 [History] Nifedipine [Procardia XL 30 mg Tablet] 30 mg PO DAILY 09/08/16 [History] Past Medical History - General Information source: Patient, Emergency Med Personnel - Social History Smoking Status: Unknown if Ever Smoked Family History: Reviewed & Not Pertinent - Past Medical History Cardiac Medical History: Reports: Hx Hypertension Pulmonary Medical History: Reports: Hx Asthma, Hx Bronchitis Renal/ Medical History: Reports: Hx Renal Insufficiency. Denies: Hx Peritoneal Dialysis Psychiatric Medical History: Reports: Hx Dementia - Immunizations Hx Diphtheria, Pertussis, Tetanus Vaccination: Yes Physical Exam - Vital signs Vitals: Temp Pulse Resp BP Pulse Ox 97.5 F 55 L 16 159/78 H 97 09/08/16 18:25 09/08/16 18:25 09/08/16 18:25 09/08/16 18:25 09/08/16 18:25 Course - Vital Signs Vital signs: Temp Pulse Resp BP Pulse Ox 97.4 F 88 18 134/88 H 100 09/16/16 09:50 09/16/16 13:26 09/16/16 13:26 09/16/16 13:26 09/16/16 13:26 Discharge - Discharge Clinical Impression: Jerking movements of extremities Condition: Stable Disposition: HOME, SELF-CARE Additional Instructions: It does not appear that you are having a seizure today. Continue your Keppra as prescribed. Seizure, Known Epileptic You have had a seizure. Seizures may "break through" in an epileptic due to stress of infection or injury, a change in blood chemistry, or drug and alcohol use. Another common cause is failure to take medication as prescribed. Your doctor has evaluated your situation for the likely cause of this seizure. It is important that you follow his advice concerning any medication changes and follow-up care. Further testing of anti-seizure medication levels in your blood may be necessary. If you have a yard driver's license, it's important that you DO NOT DRIVE until given permission by your physician. This seizure must be reported to the yard driver 's license bureau. Call the doctor or return if seizures recur, or if new or unusual symptoms arise -- such as severe headache, confusion, excessive sleepiness, local weakness or numbness, neck stiffness, or fever. Referrals: RAMBO CUMMINGS MD [ACTIVE STAFF] - Follow up as needed
[2016-09-16] MEDS ORDERED: ALBUTEROL SULFATE HFA (90 MCG/PUFF) 200 PUFF/8.5 GM MDI IH SCH (18:00)
[2016-09-16] MEDS ORDERED: HYDROXYZINE PAMOATE 25 MG CAPSULE PO PRN (18:04)
[2016-09-16] MEDS ORDERED: CLINDAMYCIN HCL 150 MG CAPSULE PO SCH (22:00)
[2016-09-16] MEDS ORDERED: LEVETIRACETAM 500 MG TABLET PO SCH (22:00)
[2016-09-17] MEDS: ALBUTEROL SULFATE HFA (90 MCG/PUFF) 200 PUFF/8.5 GM MDI IH SCH ×4 (05:00→23:00)
[2016-09-17] MEDS: CLINDAMYCIN HCL 150 MG CAPSULE PO SCH ×3 (05:00→23:00)
[2016-09-17] MEDS: LEVETIRACETAM 500 MG TABLET PO SCH ×2 (09:44→23:00)
[2016-09-17] MEDS: NIFEDIPINE 30 MG TAB.ER.24 PO SCH (09:44)
[2016-09-17] MEDS ORDERED: NIFEDIPINE 30 MG TAB.ER.24 PO SCH (10:00)
--- NOTE | 2016-09-17 11:31 | ER Document Report ---
Doctor's Note Notes: 09/17/16 11:29 Medical rounds: Chart reviewed and patient interviewed briefly. Vital signs are stable. Laboratory values are satisfactory. Patient verbalizes no somatic complaints. He remains medically stable for discharge or transfer when arrangements are made. It is my understanding that he has been accepted for admission to an assisted living facility, arrangements for transport are being made.
[2016-09-17] MEDS: HYDROXYZINE PAMOATE 25 MG CAPSULE PO PRN (23:00)
[2016-09-18] MEDS: ALBUTEROL SULFATE HFA (90 MCG/PUFF) 200 PUFF/8.5 GM MDI IH SCH ×3 (06:28→22:13)
[2016-09-18] MEDS: CLINDAMYCIN HCL 150 MG CAPSULE PO SCH ×2 (06:28→22:09)
[2016-09-18] MEDS: LEVETIRACETAM 500 MG TABLET PO SCH ×2 (09:33→22:09)
[2016-09-18] MEDS: NIFEDIPINE 30 MG TAB.ER.24 PO SCH (09:33)
--- NOTE | 2016-09-18 09:42 | ER Document Report ---
Doctor's Note Notes: 09/18/16 09:42 This is a 61-year-old man who is a resident of [facility] and has a known diagnosis of MS, dementia, encephalopathy, seizures. The patient was initially sent to the emergency room as an IVC because of concerns that he is a danger to himself. Patient has been followed up by [facility]. His vital signs have been stable. The patient's labs from September 05 are relatively unremarkable. Patient was cleared medically as well as psychiatrically. He was refused back at the [facility] and is currently awaiting placement in [place] at [facility]. They reportedly are coming to the ER tomorrow morning to evaluate the patient. Today, he is resting comfortably in bed. Alert, answering questions and has no complaints. 09/18/16 10:23
[2016-09-19] MEDS: ALBUTEROL SULFATE HFA (90 MCG/PUFF) 200 PUFF/8.5 GM MDI IH SCH ×5 (00:20→23:23)
[2016-09-19] MEDS: CLINDAMYCIN HCL 150 MG CAPSULE PO SCH ×2 (05:00→14:16)
[2016-09-19] MEDS: LEVETIRACETAM 500 MG TABLET PO SCH ×2 (11:57→22:33)
[2016-09-19] MEDS: NIFEDIPINE 30 MG TAB.ER.24 PO SCH (11:58)
[2016-09-19] MEDS: HYDROXYZINE PAMOATE 25 MG CAPSULE PO PRN ×2 (11:59→22:33)
[2016-09-19] MEDS ORDERED: LORAZEPAM 1 MG TABLET PO ONE (16:08)
[2016-09-20] MEDS: LEVETIRACETAM 500 MG TABLET PO SCH ×2 (10:21→22:27)
[2016-09-20] MEDS: ALBUTEROL SULFATE HFA (90 MCG/PUFF) 200 PUFF/8.5 GM MDI IH SCH ×3 (10:23→18:35)
[2016-09-20] MEDS: CLINDAMYCIN HCL 150 MG CAPSULE PO SCH ×3 (10:25→22:28)
[2016-09-20] MEDS: NIFEDIPINE 30 MG TAB.ER.24 PO SCH (10:34)
[2016-09-20] MEDS: HYDROXYZINE PAMOATE 25 MG CAPSULE PO PRN (22:27)
[2016-09-21] MEDS: ALBUTEROL SULFATE HFA (90 MCG/PUFF) 200 PUFF/8.5 GM MDI IH SCH ×3 (07:34→13:47)
[2016-09-21] MEDS: CLINDAMYCIN HCL 150 MG CAPSULE PO SCH ×3 (07:34→23:59)
--- NOTE | 2016-09-21 09:43 | PSYCHOLOGICAL NOTE ---
Psych Note - Psych Note Psych Note: Patient is resting comfortably in the bed this morning. He is easily arousable. Patient denies any complaints at this time. Heart is regular in rhythm. Lungs are clear to auscultation bilaterally. Skin is warm and dry. Abdomen is soft nontender and nondistended.
[2016-09-21] MEDS: NIFEDIPINE 30 MG TAB.ER.24 PO SCH (10:18)
[2016-09-21] MEDS: LEVETIRACETAM 500 MG TABLET PO SCH ×2 (10:18→23:59)
[2016-09-22] MEDS ORDERED: LORAZEPAM INJ 2 MG/1 ML VIAL IM ONE (06:04)
[2016-09-22] MEDS: ALBUTEROL SULFATE HFA (90 MCG/PUFF) 200 PUFF/8.5 GM MDI IH SCH ×5 (06:10→22:42)
--- NOTE | 2016-09-22 09:35 | PSYCHOLOGICAL NOTE ---
Psych Note - Psych Note Psych Note: Patient is without complaints morning. He did finish breakfast. Is also currently using the restroom to do some daily hygiene. Still awaiting placement.
[2016-09-22] MEDS: LEVETIRACETAM 500 MG TABLET PO SCH ×2 (12:15→22:43)
[2016-09-22] MEDS: NIFEDIPINE 30 MG TAB.ER.24 PO SCH (12:15)
[2016-09-22 12:41] LABS: ABSOLUTE EOSINOPHILS # (AUTO) 0.1 10^3/uL (0.0-0.6); ABSOLUTE LYMPHOCYTES (AUTO) 0.9 10^3/uL (0.5-4.7); ABSOLUTE MONOCYTES (AUTO) 0.4 10^3/uL (0.1-1.4); ABSOLUTE NEUT (AUTO) 6.1 10^3/uL (1.7-8.2); BASOPHILS % (AUTO) 0.6 % (0-2); EOSINOPHILS % (AUTO) 1.6 % (0-6); HEMATOCRIT 41.4 % (37.9-51.0); HEMOGLOBIN 14.4 g/dL (13.5-17.0); HGB HCT DIFFERENCE 1.8; LYMPHOCYTES % (AUTO) 12.2 % (13-45); MEAN CORPUSCULAR HEMOGLOBIN 32.3 pg (27.0-33.4); MEAN CORPUSCULAR HGB CONC 34.8 g/dL (32.0-36.0); MEAN CORPUSCULAR VOLUME 93 fl (80-97); MONOCYTES % (AUTO) 5.5 % (3-13); RED BLOOD COUNT 4.45 10^6/uL (4.35-5.55); RED CELL DISTRIBUTION WIDTH 13.8 % (11.5-14.0); SEGMENTED NEUTROPHILS % (AUTO) 80.1 % (42-78); WHITE BLOOD COUNT 7.7 10^3/uL (4.0-10.5)
[2016-09-22 12:53] LABS: ALANINE AMINOTRANSFERASE 27 U/L (21-72); ALBUMIN 3.8 g/dL (3.5-5.0); ALKALINE PHOSPHATASE 66 U/L (38-126); ANION GAP 10 (5-19); ASPARTATE AMINO TRANSFERASE 19 U/L (17-59); BILIRUBIN,DIRECT 0.2 mg/dL (0.0-0.4); BILIRUBIN,TOTAL 0.5 mg/dL (0.2-1.3); BLOOD UREA NITROGEN 17 mg/dL (7-20); CALCIUM 9.3 mg/dL (8.4-10.2); CARBON DIOXIDE 29 mmol/L (22-30); CHLORIDE 103 mmol/L (98-107); CREATININE RESULT 0.88 mg/dL (0.52-1.25); GLUCOSE 118 mg/dL (75-110); POTASSIUM 4.2 mmol/L (3.6-5.0); SODIUM 141.6 mmol/L (137-145); TOTAL PROTEIN 6.3 g/dL (6.3-8.2)
[2016-09-22 14:20] LABS: APPEARANCE,URINE CLEAR; BILIRUBIN,URINE NEGATIVE (NEGATIVE); GLUCOSE, URINE NEGATIVE (NEGATIVE); KETONES,URINE NEGATIVE (NEGATIVE); LEUKOCYTE ESTERASE,URINE NEGATIVE (NEGATIVE); NITRITE,URINE NEGATIVE (NEGATIVE); PROTEIN,URINE NEGATIVE (NEGATIVE); URINE SPECIFIC GRAVITY 1.019; UROBILINOGEN,URINE NEGATIVE mg/dL (<2.0)
[2016-09-22] MEDS: HYDROXYZINE PAMOATE 25 MG CAPSULE PO PRN (22:23)
[2016-09-23] MEDS: HYDROXYZINE PAMOATE 25 MG CAPSULE PO PRN ×2 (02:27→14:27)
[2016-09-23] MEDS: ALBUTEROL SULFATE HFA (90 MCG/PUFF) 200 PUFF/8.5 GM MDI IH SCH ×3 (05:10→18:00)
[2016-09-23] MEDS: NIFEDIPINE 30 MG TAB.ER.24 PO SCH (10:03)
[2016-09-23] MEDS: LEVETIRACETAM 500 MG TABLET PO SCH (10:03)
[2016-09-23] MEDS ORDERED: HYDROXYZINE PAMOATE 50 MG CAPSULE PO PRN (19:24)
[2016-09-24] MEDS ORDERED: HYDROXYZINE PAMOATE 25 MG CAPSULE PO PRN ×2 (01:33→10:01)
[2016-09-24] MEDS ORDERED: HYDROXYZINE PAMOATE 50 MG CAPSULE PO PRN ×2 (01:33→10:01)
[2016-09-24] MEDS ORDERED: HYDROXYZINE PAMOATE 50 MG CAPSULE PO ONE (03:09)
[2016-09-24] MEDS ORDERED: HYDROXYZINE HCL INJ 50 MG/1 ML VIAL IM ONE (03:27)
[2016-09-24] MEDS ORDERED: HYDROXYZINE PAMOATE 50 MG CAPSULE ONE (03:30)
[2016-09-24] MEDS ORDERED: ALBUTEROL SULFATE HFA (90 MCG/PUFF) 200 PUFF/8.5 GM MDI IH SCH (06:00)
[2016-09-24] MEDS ORDERED: NIFEDIPINE 30 MG TAB.ER.24 PO SCH (10:00)
[2016-09-24] MEDS ORDERED: LEVETIRACETAM 500 MG TABLET PO SCH ×2 (10:00→22:00)
[2016-09-24] MEDS ORDERED: LEVETIRACETAM 500 MG TABLET PO ONE (10:30)
[2016-09-24] MEDS ORDERED: NIFEDIPINE 30 MG TAB.ER.24 PO ONE (11:00)
[2016-09-24] MEDS: ALBUTEROL SULFATE HFA (90 MCG/PUFF) 200 PUFF/8.5 GM MDI IH SCH ×2 (12:33→17:50)
[2016-09-24] MEDS: RISPERIDONE 0.25 MG TABLET PO SCH ×2 (15:00→21:19)
[2016-09-24] MEDS: LEVETIRACETAM 500 MG TABLET PO SCH (21:18)
[2016-09-24] MEDS: BUSPIRONE HCL 10 MG TABLET PO SCH (21:18)
[2016-09-25] MEDS: ALBUTEROL SULFATE HFA (90 MCG/PUFF) 200 PUFF/8.5 GM MDI IH SCH ×4 (00:50→18:00)
[2016-09-25] MEDS: RISPERIDONE 0.25 MG TABLET PO SCH ×4 (03:00→21:40)
[2016-09-25] MEDS: BUSPIRONE HCL 10 MG TABLET PO SCH ×2 (07:49→21:40)
[2016-09-25] MEDS: LEVETIRACETAM 500 MG TABLET PO SCH ×2 (07:49→21:40)
[2016-09-25] MEDS: NIFEDIPINE 30 MG TAB.ER.24 PO SCH (10:26)
--- NOTE | 2016-09-25 10:41 | ER Document Report ---
Doctor's Note Notes: 09/25/16 10:41 Patient resting comfortably on stretcher, denies any needs at present time, chart was reviewed, patient is awaiting placement in a long-term care facility at this point in time, no other needs noted, remains stable
[2016-09-26] MEDS: ALBUTEROL SULFATE HFA (90 MCG/PUFF) 200 PUFF/8.5 GM MDI IH SCH ×4 (00:03→18:01)
[2016-09-26] MEDS: RISPERIDONE 0.25 MG TABLET PO SCH ×4 (04:09→21:59)
[2016-09-26] MEDS: LEVETIRACETAM 500 MG TABLET PO SCH ×2 (08:13→22:00)
[2016-09-26] MEDS: BUSPIRONE HCL 10 MG TABLET PO SCH ×2 (08:14→22:00)
[2016-09-26] MEDS: NIFEDIPINE 30 MG TAB.ER.24 PO SCH (10:39)
[2016-09-27] MEDS: ALBUTEROL SULFATE HFA (90 MCG/PUFF) 200 PUFF/8.5 GM MDI IH SCH ×4 (00:05→17:35)
[2016-09-27] MEDS: RISPERIDONE 0.25 MG TABLET PO SCH ×4 (03:50→21:47)
[2016-09-27] MEDS: BUSPIRONE HCL 10 MG TABLET PO SCH ×2 (07:37→21:47)
[2016-09-27] MEDS: NIFEDIPINE 30 MG TAB.ER.24 PO SCH (08:58)
[2016-09-27] MEDS: LEVETIRACETAM 500 MG TABLET PO SCH ×2 (08:58→21:46)
[2016-09-28] MEDS: ALBUTEROL SULFATE HFA (90 MCG/PUFF) 200 PUFF/8.5 GM MDI IH SCH ×5 (00:23→23:06)
[2016-09-28] MEDS: RISPERIDONE 0.25 MG TABLET PO SCH ×2 (03:09→10:21)
[2016-09-28] MEDS: BUSPIRONE HCL 10 MG TABLET PO SCH ×2 (10:20→20:51)
[2016-09-28] MEDS: NIFEDIPINE 30 MG TAB.ER.24 PO SCH (10:20)
[2016-09-28] MEDS: LEVETIRACETAM 500 MG TABLET PO SCH ×2 (10:21→20:51)
[2016-09-29] MEDS ORDERED: HALOPERIDOL LACTATE INJ 5 MG/1 ML VIAL IM ONE (03:47)
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
[2016-09-29] MEDS: ALBUTEROL SULFATE HFA (90 MCG/PUFF) 200 PUFF/8.5 GM MDI IH SCH ×2 (05:15→12:11)
[2016-09-29] MEDS: RISPERIDONE 0.25 MG TABLET PO SCH ×2 (05:47→21:36)
[2016-09-29] MEDS: NIFEDIPINE 30 MG TAB.ER.24 PO SCH (09:32)
[2016-09-29] MEDS: BUSPIRONE HCL 10 MG TABLET PO SCH ×2 (09:34→21:37)
[2016-09-29] MEDS: LEVETIRACETAM 500 MG TABLET PO SCH ×2 (09:35→21:37)
--- NOTE | 2016-09-29 10:02 | ER Document Report ---
Doctor's Note Notes: 09/29/16 10:01 Patient resting comfortably on stretcher, no complaints at this time, chart was reviewed including labs, vital signs, previous provider notes, apparently patient had an episode overnight of hallucinations and required additional medication to calm him down, this morning the nurses in his room administering his oral medications which she is taking without a problem, patient remains in the emergency room pending placement at a long-term care facility or assisted living facility, he is otherwise stable at this point in time for transfer once an opening is available at an appropriate facility
[2016-09-30] MEDS: ALBUTEROL SULFATE HFA (90 MCG/PUFF) 200 PUFF/8.5 GM MDI IH SCH ×4 (00:49→17:43)
[2016-09-30] MEDS: RISPERIDONE 0.25 MG TABLET PO SCH ×4 (06:17→23:00)
[2016-09-30] MEDS: NIFEDIPINE 30 MG TAB.ER.24 PO SCH (09:28)
[2016-09-30] MEDS: LEVETIRACETAM 500 MG TABLET PO SCH ×2 (09:28→23:00)
[2016-09-30] MEDS: BUSPIRONE HCL 10 MG TABLET PO SCH ×2 (09:29→23:00)
--- NOTE | 2016-09-30 10:28 | ER Document Report ---
Doctor's Note Notes: 09/30/16 10:25 This is a 61-year-old man with a history of seizure disorder, dementia, encephalopathy, MS. The patient is a social hold awaiting long-term care. Apparently, the patient is now awaiting care at [facility] which does not have an available bed at this time. I reviewed the chart, patient's labs, previous notes and vital signs. The patient's labs and vital signs have been stable. He has had periods of agitation while in the hospital. The nurses report that he has been taking his medicines for the past day. On physical exam, he is calm and in no distress. We will continue to observe him until long care is accomplished.
[2016-10-01] MEDS: LEVETIRACETAM 500 MG TABLET PO SCH ×2 (09:39→23:01)
[2016-10-01] MEDS: BUSPIRONE HCL 10 MG TABLET PO SCH ×2 (09:40→23:01)
[2016-10-01] MEDS: NIFEDIPINE 30 MG TAB.ER.24 PO SCH (09:40)
[2016-10-01] MEDS: RISPERIDONE 0.25 MG TABLET PO SCH ×2 (09:41→23:01)
--- NOTE | 2016-10-01 11:01 | ER Document Report ---
Doctor's Note Notes: 10/01/16 10:59 Rounds: Reviewed and patient interviewed. Patient is still waiting for placement after being in our emergency department for now 23 days! Patient has no complaints. When asked where he lives, he said "here". However, patient thinks he is in [place], [place]. Signs remained stable. No recent labs have been ordered. Appears to be medically stable for transfer or discharge. Adriana Garg MD
[2016-10-01] MEDS: ALBUTEROL SULFATE HFA (90 MCG/PUFF) 200 PUFF/8.5 GM MDI IH SCH ×3 (12:00→23:01)
[2016-10-01] MEDS ORDERED: RISPERIDONE 0.25 MG TABLET PO ONE (16:00)
[2016-10-02] MEDS: RISPERIDONE 0.25 MG TABLET PO SCH ×4 (03:30→23:30)
[2016-10-02] MEDS: ALBUTEROL SULFATE HFA (90 MCG/PUFF) 200 PUFF/8.5 GM MDI IH SCH ×3 (05:33→23:30)
[2016-10-02] MEDS: NIFEDIPINE 30 MG TAB.ER.24 PO SCH (09:16)
[2016-10-02] MEDS: LEVETIRACETAM 500 MG TABLET PO SCH ×2 (09:17→23:30)
[2016-10-02] MEDS: BUSPIRONE HCL 10 MG TABLET PO SCH ×2 (09:17→23:30)
[2016-10-03] MEDS: RISPERIDONE 0.25 MG TABLET PO SCH ×3 (06:58→17:56)
[2016-10-03] MEDS: ALBUTEROL SULFATE HFA (90 MCG/PUFF) 200 PUFF/8.5 GM MDI IH SCH ×3 (06:58→17:55)
[2016-10-03] MEDS: LEVETIRACETAM 500 MG TABLET PO SCH ×2 (08:01→21:57)
[2016-10-03] MEDS: BUSPIRONE HCL 10 MG TABLET PO SCH (08:02)
--- NOTE | 2016-10-03 09:14 | ER Document Report ---
Doctor's Note Notes: 10/03/16 09:37 As the rounding physician for our psychiatric patients, I have reviewed the chart, vitals, lab work. Patient has been examined and noted to be resting comfortably at this time. I am awaiting social media editor in put.
[2016-10-03] MEDS: NIFEDIPINE 30 MG TAB.ER.24 PO SCH (10:46)
[2016-10-03 21:40] VITALS: BP 127/88
[2016-10-04] MEDS: RISPERIDONE 0.25 MG TABLET PO SCH ×2 (02:08→07:54)
[2016-10-04] MEDS: BUSPIRONE HCL 10 MG TABLET PO SCH ×2 (02:09→07:54)
[2016-10-04] MEDS: ALBUTEROL SULFATE HFA (90 MCG/PUFF) 200 PUFF/8.5 GM MDI IH SCH ×2 (02:10→07:53)
[2016-10-04] MEDS: LEVETIRACETAM 500 MG TABLET PO SCH (07:54)
== END 2016-10-04 09:00 ==
LOC: ER 15:03
DX: G25.3 Myoclonus (principal); G35 Multiple sclerosis; F03.90 Unspecified dementia, unspecified severity, without behavioral disturbance, psychotic disturbance, mood disturbance, and anxiety; G93.40 Encephalopathy, unspecified; G40.909 Epilepsy, unspecified, not intractable, without status epilepticus
CPT/HCPCS: 36415; 85025; 80053; 81001; J1630; J3490 ×7; J2060; 96372; 99284; 99285

== ENCOUNTER 2017-02-24 11:07 | Emergency (ER) | payer BC ==
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
[2017-02-24 11:46] LABS: ABSOLUTE EOSINOPHILS # (AUTO) 0.1 10^3/uL (0.0-0.6); ABSOLUTE LYMPHOCYTES (AUTO) 0.8 10^3/uL (0.5-4.7); ABSOLUTE MONOCYTES (AUTO) 0.3 10^3/uL (0.1-1.4); ABSOLUTE NEUT (AUTO) 3.6 10^3/uL (1.7-8.2); BASOPHILS % (AUTO) 0.7 % (0-2); EOSINOPHILS % (AUTO) 2.7 % (0-6); HEMATOCRIT 38.7 % (37.9-51.0); HEMOGLOBIN 13.2 g/dL (13.5-17.0); LYMPHOCYTES % (AUTO) 17.3 % (13-45); MEAN CORPUSCULAR HEMOGLOBIN 33.2 pg (27.0-33.4); MEAN CORPUSCULAR HGB CONC 34.2 g/dL (32.0-36.0); MEAN CORPUSCULAR VOLUME 97 fl (80-97); PLATELET COUNT 161 10^3/uL (150-450); RED BLOOD COUNT 3.99 10^6/uL (4.35-5.55); RED CELL DISTRIBUTION WIDTH 12.7 % (11.5-14.0); SEGMENTED NEUTROPHILS % (AUTO) 73.3 % (42-78); TOTAL CELLS COUNTED % (AUTO) 100 %; WHITE BLOOD COUNT 4.9 10^3/uL (4.0-10.5)
[2017-02-24 11:53] LABS: APPEARANCE,URINE CLEAR; BILIRUBIN,URINE NEGATIVE (NEGATIVE); COLOR,URINE YELLOW; GLUCOSE, URINE NEGATIVE (NEGATIVE); KETONES,URINE NEGATIVE (NEGATIVE); LEUKOCYTE ESTERASE,URINE NEGATIVE (NEGATIVE); NITRITE,URINE NEGATIVE (NEGATIVE); PROTEIN,URINE NEGATIVE (NEGATIVE); URINE SPECIFIC GRAVITY 1.017; UROBILINOGEN,URINE NEGATIVE mg/dL (<2.0)
[2017-02-24] MEDS ORDERED: ONDANSETRON 4 MG TAB.RAPDIS PO ONE (12:14)
[2017-02-24 12:18] LABS: ANION GAP 12 (5-19); BLOOD UREA NITROGEN 20 mg/dL (7-20); CALCIUM 9.5 mg/dL (8.4-10.2); CARBON DIOXIDE 28 mmol/L (22-30); CHLORIDE 105 mmol/L (98-107); GLUCOSE 63 mg/dL (75-110); POTASSIUM 4.2 mmol/L (3.6-5.0); SODIUM 145.1 mmol/L (137-145)
[2017-02-25] MEDS ORDERED: HALOPERIDOL LACTATE INJ 5 MG/1 ML VIAL IM ONE (05:00)
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
[2017-02-25] MEDS ORDERED: RISPERIDONE MICROSPHERES INJ 50 MG/2 ML KIT IM SCH (05:45)
[2017-02-25] MEDS: QUETIAPINE FUMARATE 100 MG TABLET PO SCH ×2 (06:31→14:12)
[2017-02-25] MEDS: GABAPENTIN 300 MG CAPSULE PO SCH ×3 (06:31→21:44)
[2017-02-25] MEDS: LEVETIRACETAM XR 500 MG TAB.SR.24H PO SCH ×3 (06:31→21:44)
[2017-02-25] MEDS: LACTULOSE SYRUP 20 GM/30 ML UDCUP PO SCH ×3 (06:31→21:44)
[2017-02-25] MEDS: VENLAFAXINE HCL 75 MG CAP.SR.24H PO SCH (07:45)
--- NOTE | 2017-02-25 09:46 | ER Document Report ---
Doctor's Note Notes: Medical rounds: Chart reviewed and patient interviewed briefly. Vital signs are normal. Laboratory values remarkable for slightly low serum glucose yesterday evening. Patient has been eating since, ate breakfast this morning. Patient denies any somatic complaints at this time. He is medically stable awaiting psychosocial evaluation and disposition. 02/25/17 09:43
[2017-02-25] MEDS: AMLODIPINE BESYLATE 5 MG TABLET PO SCH (10:47)
[2017-02-25] MEDS: FOLIC ACID 1 MG TABLET PO SCH (10:48)
[2017-02-25] MEDS: MULTIVITAMIN TABLET PO SCH (10:49)
[2017-02-25] MEDS: DONEPEZIL HCL 5 MG TABLET PO SCH (10:49)
[2017-02-25] MEDS: CYANOCOBALAMIN (VITAMIN B-12) 1,000 MCG TABLET PO SCH (10:49)
[2017-02-25] MEDS: CHOLECALCIFEROL (D3) 1,000 UNIT TABLET PO SCH (10:51)
--- NOTE | 2017-02-25 12:11 | EKG REPORT ---
SEVERITY:- ABNORMAL ECG - ATRIAL FIBRILLATION, V-RATE 71-73 MULTIFORM VENTRICULAR PREMATURE COMPLEXES BORDERLINE PROLONGED QT INTERVAL : Confirmed by: Love Mendiola MD 25-Feb-2017 12:10:58
[2017-02-25] MEDS ORDERED: (PENDING PHARMACY ID) (Quetiapine Fumarate [Seroquel] 300 MG) PO SCH (22:00)
[2017-02-25] MEDS ORDERED: QUETIAPINE FUMARATE 100 MG TABLET PO SCH (22:00)
[2017-02-26] MEDS: MULTIVITAMIN TABLET PO SCH (08:58)
[2017-02-26] MEDS: CYANOCOBALAMIN (VITAMIN B-12) 1,000 MCG TABLET PO SCH (08:58)
[2017-02-26] MEDS: DONEPEZIL HCL 5 MG TABLET PO SCH (08:58)
[2017-02-26] MEDS: FOLIC ACID 1 MG TABLET PO SCH (08:59)
[2017-02-26] MEDS: VENLAFAXINE HCL 75 MG CAP.SR.24H PO SCH (08:59)
[2017-02-26] MEDS: CHOLECALCIFEROL (D3) 1,000 UNIT TABLET PO SCH (08:59)
[2017-02-26] MEDS: AMLODIPINE BESYLATE 5 MG TABLET PO SCH (09:00)
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
--- NOTE | 2017-02-26 09:58 | ER Document Report ---
Doctor's Note Notes: 02/26/17 09:56 This is a 61-year-old man with dementia who was sent to the emergency room for significant agitation at an Alzheimer's facility. Patient was noted to be quite agitated on admission. I reviewed his vital signs which have been stable and his labs which also are stable. The patient is currently calm and without problems. He has not had any significant agitation overnight. The patient has been evaluated by the psychology team and recommendations for med changes have been made. The general concept is to try and avoid antipsychotics given the history of dementia. We have stopped the Seroquel, risperidone, and are weaning him from Effexor. They have recommended BuSpar and PRN clonidine.
[2017-02-26] MEDS: LACTULOSE SYRUP 20 GM/30 ML UDCUP PO SCH ×2 (14:45→23:00)
[2017-02-26] MEDS: LEVETIRACETAM XR 500 MG TAB.SR.24H PO SCH (14:46)
[2017-02-26] MEDS: GABAPENTIN 300 MG CAPSULE PO SCH ×2 (14:46→23:00)
[2017-02-26] MEDS ORDERED: CLONIDINE 0.2 MG/24 HR PATCH.TDWK TD ONE (15:54)
[2017-02-26] MEDS: BUSPIRONE HCL 10 MG TABLET PO SCH (22:54)
[2017-02-26] MEDS: LEVETIRACETAM 500 MG TABLET PO SCH (23:00)
[2017-02-27] MEDS: GABAPENTIN 300 MG CAPSULE PO SCH ×3 (06:50→21:47)
[2017-02-27] MEDS: LACTULOSE SYRUP 20 GM/30 ML UDCUP PO SCH ×3 (06:50→21:47)
[2017-02-27] MEDS: LEVETIRACETAM 500 MG TABLET PO SCH ×3 (08:22→21:47)
[2017-02-27] MEDS: BUSPIRONE HCL 10 MG TABLET PO SCH ×2 (08:23→19:44)
--- NOTE | 2017-02-27 09:42 | ER Document Report ---
Doctor's Note Notes: 02/27/17 09:40 This is a 61-year-old man awaiting a care home facility. He has a history of dementia and was sent in by the Alzheimer's unit because of aggressiveness towards other residents. He has been aggressive in the emergency room requiring medicines. We did alter his medicine regimen given the dementia and have attempted to remove most of the antipsychotics and benzodiazepines from his regimen. He was aggressive earlier in the day yesterday and required getting back small amount of respiratory all. He did well overnight and is currently calm and in no distress now. He is hemodynamically stable.
[2017-02-27] MEDS: DONEPEZIL HCL 5 MG TABLET PO SCH (09:59)
[2017-02-27] MEDS: CHOLECALCIFEROL (D3) 1,000 UNIT TABLET PO SCH (09:59)
[2017-02-27] MEDS: AMLODIPINE BESYLATE 5 MG TABLET PO SCH (10:00)
[2017-02-27] MEDS: VENLAFAXINE HCL 75 MG TABLET PO SCH (10:00)
[2017-02-27] MEDS: FOLIC ACID 1 MG TABLET PO SCH (10:00)
[2017-02-27] MEDS: MULTIVITAMIN TABLET PO SCH (10:00)
[2017-02-27] MEDS: CYANOCOBALAMIN (VITAMIN B-12) 1,000 MCG TABLET PO SCH (10:04)
[2017-02-27] MEDS ORDERED: RISPERIDONE 0.25 MG TABLET PO SCH (14:00)
[2017-02-27] MEDS ORDERED: RISPERIDONE 0.25 MG TABLET PO ONE (16:00)
[2017-02-28] MEDS: GABAPENTIN 300 MG CAPSULE PO SCH ×3 (07:22→22:27)
[2017-02-28] MEDS: LACTULOSE SYRUP 20 GM/30 ML UDCUP PO SCH ×3 (07:23→22:27)
[2017-02-28] MEDS: LEVETIRACETAM 500 MG TABLET PO SCH ×3 (07:23→22:23)
[2017-02-28] MEDS: BUSPIRONE HCL 10 MG TABLET PO SCH ×2 (08:01→17:27)
--- NOTE | 2017-02-28 09:48 | ER Document Report ---
Doctor's Note Notes: 02/28/17 09:47 Rounds: Chart reviewed. Patient interviewed. Patient is ambulatory without difficulty. Patient's memory is very poor. Does not know where he is. Does not know why he is here. Does not know where he lives. Says he has 4 children but cannot remember the names of 2 of them. Has no complaints. Labs have all been essentially normal. Vital signs are stable. Patient appears to be stable for transfer or discharge. Awaiting information from discharge planning of what is proposed to be done for this patient. Adriana Garg MD
[2017-02-28] MEDS: CHOLECALCIFEROL (D3) 1,000 UNIT TABLET PO SCH (09:56)
[2017-02-28] MEDS: CYANOCOBALAMIN (VITAMIN B-12) 1,000 MCG TABLET PO SCH (09:56)
[2017-02-28] MEDS: AMLODIPINE BESYLATE 5 MG TABLET PO SCH (09:57)
[2017-02-28] MEDS: RISPERIDONE 0.25 MG TABLET PO SCH (09:57)
[2017-02-28] MEDS: VENLAFAXINE HCL 75 MG TABLET PO SCH (09:57)
[2017-02-28] MEDS: FOLIC ACID 1 MG TABLET PO SCH (09:57)
[2017-02-28] MEDS: MULTIVITAMIN TABLET PO SCH (09:57)
[2017-02-28] MEDS: DONEPEZIL HCL 5 MG TABLET PO SCH (09:58)
[2017-02-28] MEDS: CLONIDINE HCL 0.1 MG TABLET PO PRN (22:23)
[2017-03-01] MEDS: GABAPENTIN 300 MG CAPSULE PO SCH ×3 (05:41→23:30)
[2017-03-01] MEDS: LEVETIRACETAM 500 MG TABLET PO SCH ×3 (05:42→23:31)
[2017-03-01] MEDS: LACTULOSE SYRUP 20 GM/30 ML UDCUP PO SCH ×3 (05:42→23:29)
--- NOTE | 2017-03-01 10:53 | ER Document Report ---
Doctor's Note Notes: 03/01/17 10:52 Medical rounds: Chart reviewed and patient interviewed briefly. Vital signs remain stable. Patient is alert, oriented, and cooperative. He denies any somatic complaints at this time. He is medically stable, pending placement.
[2017-03-01] MEDS: AMLODIPINE BESYLATE 5 MG TABLET PO SCH (11:24)
[2017-03-01] MEDS: CHOLECALCIFEROL (D3) 1,000 UNIT TABLET PO SCH (11:27)
[2017-03-01] MEDS: RISPERIDONE 0.25 MG TABLET PO SCH (11:27)
[2017-03-01] MEDS: DONEPEZIL HCL 5 MG TABLET PO SCH (11:27)
[2017-03-01] MEDS: FOLIC ACID 1 MG TABLET PO SCH (11:28)
[2017-03-01] MEDS: CLONIDINE HCL 0.1 MG TABLET PO PRN ×2 (11:28→23:32)
[2017-03-01] MEDS: CYANOCOBALAMIN (VITAMIN B-12) 1,000 MCG TABLET PO SCH (11:28)
[2017-03-01] MEDS: VENLAFAXINE HCL 75 MG TABLET PO SCH (11:28)
[2017-03-01] MEDS: MULTIVITAMIN TABLET PO SCH (11:28)
[2017-03-01] MEDS: BUSPIRONE HCL 10 MG TABLET PO SCH ×2 (11:29→19:30)
[2017-03-02] MEDS: GABAPENTIN 300 MG CAPSULE PO SCH ×2 (06:35→15:44)
[2017-03-02] MEDS: LACTULOSE SYRUP 20 GM/30 ML UDCUP PO SCH ×2 (06:36→15:44)
[2017-03-02] MEDS: LEVETIRACETAM 500 MG TABLET PO SCH ×3 (06:37→22:00)
--- NOTE | 2017-03-02 08:44 | ER Document Report ---
Doctor's Note Notes: 03/02/17 08:43 As the rounding physician for our social hold patients, I have reviewed the chart, vitals, lab work. Patient has been examined and noted to be stable . I am awaiting social science professor in put.
[2017-03-02] MEDS: MULTIVITAMIN TABLET PO SCH (09:55)
[2017-03-02] MEDS: RISPERIDONE 0.25 MG TABLET PO SCH (09:55)
[2017-03-02] MEDS: FOLIC ACID 1 MG TABLET PO SCH (09:55)
[2017-03-02] MEDS: BUSPIRONE HCL 10 MG TABLET PO SCH ×2 (09:56→18:29)
[2017-03-02] MEDS: AMLODIPINE BESYLATE 5 MG TABLET PO SCH (09:56)
[2017-03-02] MEDS: DONEPEZIL HCL 5 MG TABLET PO SCH (09:57)
[2017-03-02] MEDS: CHOLECALCIFEROL (D3) 1,000 UNIT TABLET PO SCH (09:57)
[2017-03-02] MEDS: CYANOCOBALAMIN (VITAMIN B-12) 1,000 MCG TABLET PO SCH (11:07)
[2017-03-02] MEDS ORDERED: ZIPRASIDONE MESYLATE INJ/PF 20 MG SDV IM ONE (20:48)
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
[2017-03-02] MEDS ORDERED: LEVETIRACETAM 500 MG TABLET PO SCH (22:00)
[2017-03-03] MEDS ORDERED: GABAPENTIN 300 MG CAPSULE PO ONE (02:00)
[2017-03-03] MEDS ORDERED: LACTULOSE SYRUP 20 GM/30 ML UDCUP PO ONE (02:00)
[2017-03-03] MEDS ORDERED: LACTULOSE SYRUP 20 GM/30 ML UDCUP PO SCH (06:00)
[2017-03-03] MEDS ORDERED: GABAPENTIN 300 MG CAPSULE PO SCH (06:00)
[2017-03-03] MEDS ORDERED: FOLIC ACID 1 MG TABLET PO SCH (10:00)
--- NOTE | 2017-03-03 10:26 | ER Document Report ---
Doctor's Note Notes: 03/03/17 10:23 Rounds: Chart reviewed and patient not interviewed because sleeping. Patient has been here for 1 week now. Looking for placement. Vital signs were all stable. No new labs to review. Patient appears to be medically stable for transfer or discharge. Adriana Garg MD.
[2017-03-03] MEDS: MULTIVITAMIN TABLET PO SCH (10:47)
[2017-03-03] MEDS: DONEPEZIL HCL 5 MG TABLET PO SCH (10:47)
[2017-03-03] MEDS: CHOLECALCIFEROL (D3) 1,000 UNIT TABLET PO SCH (10:47)
[2017-03-03] MEDS: BUSPIRONE HCL 10 MG TABLET PO SCH ×2 (10:48→18:44)
[2017-03-03] MEDS: CLONIDINE HCL 0.1 MG TABLET PO PRN (10:48)
[2017-03-03] MEDS: CYANOCOBALAMIN (VITAMIN B-12) 1,000 MCG TABLET PO SCH (10:49)
[2017-03-03] MEDS: RISPERIDONE 0.25 MG TABLET PO SCH (10:49)
[2017-03-03] MEDS: LACTULOSE SYRUP 20 GM/30 ML UDCUP PO SCH ×2 (16:46→22:36)
[2017-03-03] MEDS: LEVETIRACETAM 500 MG TABLET PO SCH ×2 (16:46→22:22)
[2017-03-03] MEDS: GABAPENTIN 300 MG CAPSULE PO SCH ×2 (16:46→22:21)
[2017-03-03] MEDS: FOLIC ACID 1 MG TABLET PO SCH (16:47)
[2017-03-04] MEDS: LACTULOSE SYRUP 20 GM/30 ML UDCUP PO SCH ×3 (06:50→23:17)
[2017-03-04] MEDS: LEVETIRACETAM 500 MG TABLET PO SCH ×3 (06:50→23:18)
[2017-03-04] MEDS: GABAPENTIN 300 MG CAPSULE PO SCH ×3 (06:50→23:18)
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
[2017-03-04] MEDS: CLONIDINE HCL 0.1 MG TABLET PO PRN (09:31)
[2017-03-04] MEDS: CYANOCOBALAMIN (VITAMIN B-12) 1,000 MCG TABLET PO SCH (09:32)
[2017-03-04] MEDS: FOLIC ACID 1 MG TABLET PO SCH (09:32)
[2017-03-04] MEDS: RISPERIDONE 0.25 MG TABLET PO SCH (09:32)
[2017-03-04] MEDS: DONEPEZIL HCL 5 MG TABLET PO SCH (09:32)
[2017-03-04] MEDS: BUSPIRONE HCL 10 MG TABLET PO SCH ×2 (09:32→18:04)
[2017-03-04] MEDS: MULTIVITAMIN TABLET PO SCH (09:33)
[2017-03-04] MEDS: CHOLECALCIFEROL (D3) 1,000 UNIT TABLET PO SCH (09:33)
[2017-03-05] MEDS: LACTULOSE SYRUP 20 GM/30 ML UDCUP PO SCH ×3 (06:34→21:20)
[2017-03-05] MEDS: LEVETIRACETAM 500 MG TABLET PO SCH ×3 (06:35→21:20)
[2017-03-05] MEDS: GABAPENTIN 300 MG CAPSULE PO SCH ×3 (06:35→21:20)
--- NOTE | 2017-03-05 09:38 | ER Document Report ---
Doctor's Note Notes: 03/05/17 09:38 No issues overnight. The patient is remained stable. Plan unchanged. Patient ambulating to bathroom without difficulty. 03/05/17 09:38
[2017-03-05] MEDS: MULTIVITAMIN TABLET PO SCH (09:57)
[2017-03-05] MEDS: CYANOCOBALAMIN (VITAMIN B-12) 1,000 MCG TABLET PO SCH (09:57)
[2017-03-05] MEDS: CHOLECALCIFEROL (D3) 1,000 UNIT TABLET PO SCH (09:57)
[2017-03-05] MEDS: BUSPIRONE HCL 10 MG TABLET PO SCH (09:58)
[2017-03-05] MEDS: CLONIDINE HCL 0.1 MG TABLET PO PRN (09:58)
[2017-03-05] MEDS: RISPERIDONE 0.25 MG TABLET PO SCH (09:58)
[2017-03-05] MEDS: DONEPEZIL HCL 5 MG TABLET PO SCH (15:14)
[2017-03-05] MEDS: FOLIC ACID 1 MG TABLET PO SCH (15:14)
[2017-03-06] MEDS: CLONIDINE HCL 0.1 MG TABLET PO PRN ×3 (01:02→22:46)
[2017-03-06] MEDS: LACTULOSE SYRUP 20 GM/30 ML UDCUP PO SCH ×3 (06:47→22:46)
[2017-03-06] MEDS: GABAPENTIN 300 MG CAPSULE PO SCH ×3 (06:48→22:46)
[2017-03-06] MEDS: LEVETIRACETAM 500 MG TABLET PO SCH ×3 (06:48→22:45)
[2017-03-06] MEDS: BUSPIRONE HCL 10 MG TABLET PO SCH ×3 (08:06→17:56)
--- NOTE | 2017-03-06 08:53 | ER Document Report ---
Doctor's Note Notes: 03/06/17 13:17 As the rounding physician for our social hold patients, I have reviewed the chart, vitals, lab work. Patient has been examined and noted to be resting now but agitated overnight . Effexor restarted
[2017-03-06] MEDS: FOLIC ACID 1 MG TABLET PO SCH (09:39)
[2017-03-06] MEDS: CHOLECALCIFEROL (D3) 1,000 UNIT TABLET PO SCH (09:39)
[2017-03-06] MEDS: MULTIVITAMIN TABLET PO SCH (09:40)
[2017-03-06] MEDS: RISPERIDONE 0.25 MG TABLET PO SCH (09:40)
[2017-03-06] MEDS: CYANOCOBALAMIN (VITAMIN B-12) 1,000 MCG TABLET PO SCH (09:56)
[2017-03-06] MEDS: DONEPEZIL HCL 5 MG TABLET PO SCH (09:56)
[2017-03-06] MEDS: AMLODIPINE BESYLATE 5 MG TABLET PO SCH (11:44)
[2017-03-06] MEDS ORDERED: VENLAFAXINE HCL 75 MG TABLET PO SCH (12:45)
[2017-03-06] MEDS ORDERED: VENLAFAXINE HCL 75 MG TABLET PO ONE (14:00)
[2017-03-07] MEDS: LEVETIRACETAM 500 MG TABLET PO SCH ×2 (06:39→13:16)
[2017-03-07] MEDS: GABAPENTIN 300 MG CAPSULE PO SCH ×2 (06:40→13:16)
[2017-03-07] MEDS: LACTULOSE SYRUP 20 GM/30 ML UDCUP PO SCH ×2 (06:40→13:16)
[2017-03-07] MEDS: BUSPIRONE HCL 10 MG TABLET PO SCH ×2 (08:17→17:04)
--- NOTE | 2017-03-07 09:51 | ER Document Report ---
Doctor's Note Notes: 03/07/17 09:50 Rounds: Patient appears to be stable. Vital signs are normal. Patient is medically stable for transfer or discharge. Adriana Garg MD
[2017-03-07] MEDS: AMLODIPINE BESYLATE 5 MG TABLET PO SCH (09:54)
[2017-03-07] MEDS: CLONIDINE HCL 0.1 MG TABLET PO PRN (09:54)
[2017-03-07] MEDS: CHOLECALCIFEROL (D3) 1,000 UNIT TABLET PO SCH (09:54)
[2017-03-07] MEDS: MULTIVITAMIN TABLET PO SCH (09:55)
[2017-03-07] MEDS: FOLIC ACID 1 MG TABLET PO SCH (09:55)
[2017-03-07] MEDS: RISPERIDONE 0.25 MG TABLET PO SCH (09:55)
[2017-03-07] MEDS: VENLAFAXINE HCL 75 MG TABLET PO SCH (09:55)
[2017-03-07] MEDS: DONEPEZIL HCL 5 MG TABLET PO SCH (09:55)
[2017-03-07] MEDS: CYANOCOBALAMIN (VITAMIN B-12) 1,000 MCG TABLET PO SCH (09:55)
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
[2017-03-08] MEDS: LEVETIRACETAM 500 MG TABLET PO SCH ×2 (06:57→14:15)
[2017-03-08] MEDS: GABAPENTIN 300 MG CAPSULE PO SCH ×2 (06:58→14:14)
[2017-03-08] MEDS: LACTULOSE SYRUP 20 GM/30 ML UDCUP PO SCH ×2 (06:59→14:16)
[2017-03-08] MEDS: BUSPIRONE HCL 10 MG TABLET PO SCH (07:01)
[2017-03-08] MEDS: MULTIVITAMIN TABLET PO SCH (10:03)
[2017-03-08] MEDS: CYANOCOBALAMIN (VITAMIN B-12) 1,000 MCG TABLET PO SCH (10:03)
[2017-03-08] MEDS: CLONIDINE HCL 0.1 MG TABLET PO PRN (10:04)
[2017-03-08] MEDS: VENLAFAXINE HCL 75 MG TABLET PO SCH (10:04)
[2017-03-08] MEDS: CHOLECALCIFEROL (D3) 1,000 UNIT TABLET PO SCH (10:04)
[2017-03-08] MEDS: FOLIC ACID 1 MG TABLET PO SCH (10:04)
[2017-03-08] MEDS: RISPERIDONE 0.25 MG TABLET PO SCH (10:04)
[2017-03-08] MEDS: AMLODIPINE BESYLATE 5 MG TABLET PO SCH (10:05)
[2017-03-08] MEDS: DONEPEZIL HCL 5 MG TABLET PO SCH (10:09)
--- NOTE | 2017-03-08 10:27 | ER Document Report ---
Doctor's Note Notes: 03/08/17 10:27 Rounds: No change in condition. Patient is up and ambulating and has no complaints. Vital signs are all essentially normal. Patient appears to be medically stable for transfer or discharge. Adriana Garg MD
[2017-03-09] MEDS: GABAPENTIN 300 MG CAPSULE PO SCH ×4 (04:02→23:52)
[2017-03-09] MEDS: LACTULOSE SYRUP 20 GM/30 ML UDCUP PO SCH ×4 (04:02→23:51)
[2017-03-09] MEDS: LEVETIRACETAM 500 MG TABLET PO SCH ×4 (04:03→23:52)
[2017-03-09] MEDS: BUSPIRONE HCL 10 MG TABLET PO SCH ×3 (07:50→18:43)
[2017-03-09] MEDS: CLONIDINE HCL 0.1 MG TABLET PO PRN ×2 (08:57→09:25)
[2017-03-09] MEDS: CHOLECALCIFEROL (D3) 1,000 UNIT TABLET PO SCH (09:24)
[2017-03-09] MEDS: MULTIVITAMIN TABLET PO SCH (09:25)
[2017-03-09] MEDS: RISPERIDONE 0.25 MG TABLET PO SCH (09:26)
[2017-03-09] MEDS: DONEPEZIL HCL 5 MG TABLET PO SCH (09:26)
[2017-03-09] MEDS: AMLODIPINE BESYLATE 5 MG TABLET PO SCH (09:26)
[2017-03-09] MEDS: VENLAFAXINE HCL 75 MG TABLET PO SCH (09:47)
[2017-03-09] MEDS: CYANOCOBALAMIN (VITAMIN B-12) 1,000 MCG TABLET PO SCH (09:47)
[2017-03-09] MEDS: FOLIC ACID 1 MG TABLET PO SCH (10:47)
[2017-03-10] MEDS: GABAPENTIN 300 MG CAPSULE PO SCH ×3 (06:02→22:45)
[2017-03-10] MEDS: LACTULOSE SYRUP 20 GM/30 ML UDCUP PO SCH ×3 (06:03→22:44)
[2017-03-10] MEDS: LEVETIRACETAM 500 MG TABLET PO SCH ×3 (06:03→22:45)
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
[2017-03-10] MEDS: CHOLECALCIFEROL (D3) 1,000 UNIT TABLET PO SCH (11:20)
[2017-03-10] MEDS: CYANOCOBALAMIN (VITAMIN B-12) 1,000 MCG TABLET PO SCH (11:20)
[2017-03-10] MEDS: RISPERIDONE 0.25 MG TABLET PO SCH (11:21)
[2017-03-10] MEDS: VENLAFAXINE HCL 75 MG TABLET PO SCH (11:21)
[2017-03-10] MEDS: DONEPEZIL HCL 5 MG TABLET PO SCH (11:21)
[2017-03-10] MEDS: MULTIVITAMIN TABLET PO SCH (11:21)
[2017-03-10] MEDS: CLONIDINE HCL 0.1 MG TABLET PO PRN (11:22)
[2017-03-10] MEDS: BUSPIRONE HCL 10 MG TABLET PO SCH ×2 (11:22→18:27)
[2017-03-10] MEDS: AMLODIPINE BESYLATE 5 MG TABLET PO SCH (11:23)
[2017-03-10] MEDS: FOLIC ACID 1 MG TABLET PO SCH (11:23)
[2017-03-11] MEDS: CLONIDINE HCL 0.1 MG TABLET PO PRN ×2 (00:16→10:49)
[2017-03-11] MEDS: LACTULOSE SYRUP 20 GM/30 ML UDCUP PO SCH ×2 (06:47→15:26)
[2017-03-11] MEDS: GABAPENTIN 300 MG CAPSULE PO SCH ×2 (06:47→15:27)
[2017-03-11] MEDS: LEVETIRACETAM 500 MG TABLET PO SCH ×2 (06:48→15:27)
[2017-03-11] MEDS: CHOLECALCIFEROL (D3) 1,000 UNIT TABLET PO SCH (10:48)
[2017-03-11] MEDS: FOLIC ACID 1 MG TABLET PO SCH (10:48)
[2017-03-11] MEDS: RISPERIDONE 0.25 MG TABLET PO SCH (10:48)
[2017-03-11] MEDS: DONEPEZIL HCL 5 MG TABLET PO SCH (10:49)
[2017-03-11] MEDS: BUSPIRONE HCL 10 MG TABLET PO SCH ×2 (10:49→19:00)
[2017-03-11] MEDS: MULTIVITAMIN TABLET PO SCH (10:49)
[2017-03-11] MEDS: AMLODIPINE BESYLATE 5 MG TABLET PO SCH (10:50)
[2017-03-11] MEDS: VENLAFAXINE HCL 75 MG TABLET PO SCH (10:52)
[2017-03-11] MEDS: CYANOCOBALAMIN (VITAMIN B-12) 1,000 MCG TABLET PO SCH (10:52)
[2017-03-12] MEDS: LEVETIRACETAM 500 MG TABLET PO SCH ×3 (00:15→15:12)
[2017-03-12] MEDS: GABAPENTIN 300 MG CAPSULE PO SCH ×3 (00:16→15:12)
[2017-03-12] MEDS: LACTULOSE SYRUP 20 GM/30 ML UDCUP PO SCH ×3 (00:18→15:12)
[2017-03-12] MEDS: CLONIDINE HCL 0.1 MG TABLET PO PRN ×2 (00:18→10:29)
[2017-03-12 01:00] LABS: ABSOLUTE BASOPHILS # (AUTO) 0.1 10^3/uL (0.0-0.2); ABSOLUTE EOSINOPHILS # (AUTO) 0.2 10^3/uL (0.0-0.6); ABSOLUTE LYMPHOCYTES (AUTO) 1.8 10^3/uL (0.5-4.7); ABSOLUTE MONOCYTES (AUTO) 0.4 10^3/uL (0.1-1.4); ABSOLUTE NEUT (AUTO) 4.8 10^3/uL (1.7-8.2); BASOPHILS % (AUTO) 0.7 % (0-2); EOSINOPHILS % (AUTO) 2.4 % (0-6); HEMATOCRIT 40.9 % (37.9-51.0); HEMOGLOBIN 14.3 g/dL (13.5-17.0); LYMPHOCYTES % (AUTO) 24.8 % (13-45); MEAN CORPUSCULAR HEMOGLOBIN 33.1 pg (27.0-33.4); MEAN CORPUSCULAR VOLUME 95 fl (80-97); MONOCYTES % (AUTO) 5.8 % (3-13); PLATELET COUNT 160 10^3/uL (150-450); RED BLOOD COUNT 4.32 10^6/uL (4.35-5.55); RED CELL DISTRIBUTION WIDTH 12.1 % (11.5-14.0); SEGMENTED NEUTROPHILS % (AUTO) 66.3 % (42-78); TOTAL CELLS COUNTED % (AUTO) 100 %; WHITE BLOOD COUNT 7.3 10^3/uL (4.0-10.5)
[2017-03-12 01:25] LABS: ANION GAP 11 (5-19); BLOOD UREA NITROGEN 16 mg/dL (7-20); CALCIUM 9.6 mg/dL (8.4-10.2); CARBON DIOXIDE 29 mmol/L (22-30); CHLORIDE 106 mmol/L (98-107); GLUCOSE 78 mg/dL (75-110); POTASSIUM 3.8 mmol/L (3.6-5.0); SODIUM 145.6 mmol/L (137-145)
[2017-03-12] MEDS: BUSPIRONE HCL 10 MG TABLET PO SCH ×2 (09:14→17:03)
[2017-03-12] MEDS ORDERED: LACTULOSE SYRUP 20 GM/30 ML UDCUP PO ONE (09:30)
[2017-03-12] MEDS ORDERED: LEVETIRACETAM 500 MG TABLET PO ONE (09:30)
[2017-03-12] MEDS ORDERED: GABAPENTIN 300 MG CAPSULE PO ONE (09:30)
[2017-03-12] MEDS: FOLIC ACID 1 MG TABLET PO SCH (10:28)
[2017-03-12] MEDS: VENLAFAXINE HCL 75 MG TABLET PO SCH (10:28)
[2017-03-12] MEDS: CHOLECALCIFEROL (D3) 1,000 UNIT TABLET PO SCH (10:28)
[2017-03-12] MEDS: CYANOCOBALAMIN (VITAMIN B-12) 1,000 MCG TABLET PO SCH (10:28)
[2017-03-12] MEDS: DONEPEZIL HCL 5 MG TABLET PO SCH (10:29)
[2017-03-12] MEDS: RISPERIDONE 0.25 MG TABLET PO SCH (10:29)
[2017-03-12] MEDS: MULTIVITAMIN TABLET PO SCH (10:29)
[2017-03-12] MEDS: AMLODIPINE BESYLATE 5 MG TABLET PO SCH (10:29)
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
[2017-03-13] MEDS: LEVETIRACETAM 500 MG TABLET PO SCH ×3 (07:19→21:46)
[2017-03-13] MEDS: GABAPENTIN 300 MG CAPSULE PO SCH ×3 (07:29→21:46)
[2017-03-13] MEDS: LACTULOSE SYRUP 20 GM/30 ML UDCUP PO SCH ×3 (07:30→21:47)
[2017-03-13] MEDS: BUSPIRONE HCL 10 MG TABLET PO SCH ×2 (08:56→17:46)
[2017-03-13] MEDS: CLONIDINE HCL 0.1 MG TABLET PO PRN ×3 (08:57→21:47)
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
[2017-03-13] MEDS: CYANOCOBALAMIN (VITAMIN B-12) 1,000 MCG TABLET PO SCH (10:14)
[2017-03-13] MEDS: MULTIVITAMIN TABLET PO SCH (10:14)
[2017-03-13] MEDS: CHOLECALCIFEROL (D3) 1,000 UNIT TABLET PO SCH (10:14)
[2017-03-13] MEDS: VENLAFAXINE HCL 75 MG TABLET PO SCH (10:14)
[2017-03-13] MEDS: FOLIC ACID 1 MG TABLET PO SCH (10:15)
[2017-03-13] MEDS: AMLODIPINE BESYLATE 5 MG TABLET PO SCH (10:15)
[2017-03-13] MEDS: RISPERIDONE 0.25 MG TABLET PO SCH (10:15)
[2017-03-13] MEDS: DONEPEZIL HCL 5 MG TABLET PO SCH (10:26)
--- NOTE | 2017-03-14 10:15 | ER Document Report ---
Doctor's Note Notes: 03/14/17 10:13 Patient remains calm and cooperative here. Placement is still being pursued. Patient is resting comfortably in bed though he is sitting up fidgeting with the rail. When I ask why he states he thought a portion of it was supposed to be cut out to match the bottom portion of the bed. He seems distracted by this but does not seem to have any issues or problems with it and is very polite and cooperative. Heart and lungs are normal.
[2017-03-14] MEDS: MULTIVITAMIN TABLET PO SCH (10:54)
[2017-03-14] MEDS: BUSPIRONE HCL 10 MG TABLET PO SCH ×2 (10:55→18:43)
[2017-03-14] MEDS: FOLIC ACID 1 MG TABLET PO SCH (10:55)
[2017-03-14] MEDS: CYANOCOBALAMIN (VITAMIN B-12) 1,000 MCG TABLET PO SCH (10:55)
[2017-03-14] MEDS: VENLAFAXINE HCL 75 MG TABLET PO SCH (10:55)
[2017-03-14] MEDS: CHOLECALCIFEROL (D3) 1,000 UNIT TABLET PO SCH (10:55)
[2017-03-14] MEDS: RISPERIDONE 0.25 MG TABLET PO SCH (10:56)
[2017-03-14] MEDS: AMLODIPINE BESYLATE 5 MG TABLET PO SCH (10:56)
[2017-03-14] MEDS: DONEPEZIL HCL 5 MG TABLET PO SCH (11:41)
[2017-03-14] MEDS: GABAPENTIN 300 MG CAPSULE PO SCH (23:38)
[2017-03-14] MEDS: LACTULOSE SYRUP 20 GM/30 ML UDCUP PO SCH (23:39)
[2017-03-14] MEDS: LEVETIRACETAM 500 MG TABLET PO SCH (23:39)
[2017-03-15] MEDS: LEVETIRACETAM 500 MG TABLET PO SCH ×3 (07:05→21:12)
[2017-03-15] MEDS: LACTULOSE SYRUP 20 GM/30 ML UDCUP PO SCH ×3 (07:05→21:13)
[2017-03-15] MEDS: GABAPENTIN 300 MG CAPSULE PO SCH ×3 (08:11→21:13)
[2017-03-15] MEDS: BUSPIRONE HCL 10 MG TABLET PO SCH ×2 (08:12→18:40)
--- NOTE | 2017-03-15 09:35 | ER Document Report ---
Doctor's Note Notes: 03/15/17 09:34 Rounds: Patient remained stable. Vital signs are all normal. Patient is awaiting placement as he approaches being here in this emergency department for 3 weeks. Patient appears to be medically stable for transfer or discharge. Adriana Garg MD
[2017-03-15] MEDS: DONEPEZIL HCL 5 MG TABLET PO SCH (10:31)
[2017-03-15] MEDS: VENLAFAXINE HCL 75 MG TABLET PO SCH (10:31)
[2017-03-15] MEDS: MULTIVITAMIN TABLET PO SCH (10:31)
[2017-03-15] MEDS: FOLIC ACID 1 MG TABLET PO SCH (10:31)
[2017-03-15] MEDS: CYANOCOBALAMIN (VITAMIN B-12) 1,000 MCG TABLET PO SCH (10:31)
[2017-03-15] MEDS: CHOLECALCIFEROL (D3) 1,000 UNIT TABLET PO SCH (10:32)
[2017-03-15] MEDS: RISPERIDONE 0.25 MG TABLET PO SCH (10:32)
[2017-03-15] MEDS: AMLODIPINE BESYLATE 5 MG TABLET PO SCH (10:32)
--- NOTE | 2017-03-16 01:37 | ER Document Report ---
Doctor's Note Notes: 03/16/17 01:36 Was asked to examine the patient's wounds. He has got to superficial abrasions to the dorsal aspect of both hands. There is some erythema over the wounds but there is no obvious streaking or pus drainage. I have advised to continue with local wound care and bacitracin.
[2017-03-16] MEDS: GABAPENTIN 300 MG CAPSULE PO SCH ×3 (05:23→21:33)
[2017-03-16] MEDS: LEVETIRACETAM 500 MG TABLET PO SCH ×3 (05:24→21:33)
[2017-03-16] MEDS: LACTULOSE SYRUP 20 GM/30 ML UDCUP PO SCH ×3 (05:24→21:33)
[2017-03-16] MEDS: CLONIDINE HCL 0.1 MG TABLET PO PRN ×2 (05:41→11:13)
[2017-03-16] MEDS: BUSPIRONE HCL 10 MG TABLET PO SCH ×2 (08:30→17:05)
--- NOTE | 2017-03-16 11:08 | ER Document Report ---
Doctor's Note Notes: 03/16/17 11:06 Rounds: No change in condition. Vital signs are all essentially normal. Patient is a long-term hold waiting for placement somewhere. Patient appears to be medically stable for transfer or discharge. Adriana Garg MD
[2017-03-16] MEDS: AMLODIPINE BESYLATE 5 MG TABLET PO SCH (11:13)
[2017-03-16] MEDS: MULTIVITAMIN TABLET PO SCH (11:13)
[2017-03-16] MEDS: CHOLECALCIFEROL (D3) 1,000 UNIT TABLET PO SCH (11:14)
[2017-03-16] MEDS: RISPERIDONE 0.25 MG TABLET PO SCH (11:14)
[2017-03-16] MEDS: DONEPEZIL HCL 5 MG TABLET PO SCH (11:15)
[2017-03-16] MEDS: CYANOCOBALAMIN (VITAMIN B-12) 1,000 MCG TABLET PO SCH (11:37)
[2017-03-16] MEDS: VENLAFAXINE HCL 75 MG TABLET PO SCH (11:38)
[2017-03-16] MEDS: FOLIC ACID 1 MG TABLET PO SCH (14:26)
[2017-03-17] MEDS: LACTULOSE SYRUP 20 GM/30 ML UDCUP PO SCH ×3 (05:34→22:56)
[2017-03-17] MEDS: GABAPENTIN 300 MG CAPSULE PO SCH ×3 (05:34→22:56)
[2017-03-17] MEDS: LEVETIRACETAM 500 MG TABLET PO SCH ×3 (05:34→22:57)
[2017-03-17] MEDS: CLONIDINE HCL 0.1 MG TABLET PO PRN ×2 (05:35→10:07)
[2017-03-17] MEDS: BUSPIRONE HCL 10 MG TABLET PO SCH (08:14)
[2017-03-17] MEDS: DONEPEZIL HCL 5 MG TABLET PO SCH (10:06)
[2017-03-17] MEDS: AMLODIPINE BESYLATE 5 MG TABLET PO SCH (10:07)
[2017-03-17] MEDS: CHOLECALCIFEROL (D3) 1,000 UNIT TABLET PO SCH (10:08)
[2017-03-17] MEDS: MULTIVITAMIN TABLET PO SCH (10:09)
[2017-03-17] MEDS: FOLIC ACID 1 MG TABLET PO SCH (10:10)
[2017-03-17] MEDS: RISPERIDONE 0.25 MG TABLET PO SCH (10:10)
[2017-03-17] MEDS: VENLAFAXINE HCL 75 MG TABLET PO SCH (10:21)
[2017-03-17] MEDS: CYANOCOBALAMIN (VITAMIN B-12) 1,000 MCG TABLET PO SCH (10:21)
--- NOTE | 2017-03-17 19:01 | ER Document Report ---
Doctor's Note Notes: 03/17/17 19:00 Patient continues to deny any pain, states he has had a shower today, enjoys the food, is walking around on a regular basis. Patient does have some abrasions to the backs of his hands which are dressed and improving. Full range of motion in his fingers and hands, no evidence of tendon infection. Still awaiting placement. Guardianship hearing is continuing.
[2017-03-18] MEDS: MULTIVITAMIN TABLET PO SCH (10:30)
[2017-03-18] MEDS: CLONIDINE HCL 0.1 MG TABLET PO PRN (10:30)
[2017-03-18] MEDS: FOLIC ACID 1 MG TABLET PO SCH (10:31)
[2017-03-18] MEDS: CHOLECALCIFEROL (D3) 1,000 UNIT TABLET PO SCH (10:31)
[2017-03-18] MEDS: AMLODIPINE BESYLATE 5 MG TABLET PO SCH (10:31)
[2017-03-18] MEDS: RISPERIDONE 0.25 MG TABLET PO SCH (10:31)
[2017-03-18] MEDS: DONEPEZIL HCL 5 MG TABLET PO SCH (10:32)
[2017-03-18] MEDS: VENLAFAXINE HCL 75 MG TABLET PO SCH (10:32)
[2017-03-18] MEDS: BUSPIRONE HCL 10 MG TABLET PO SCH ×2 (10:32→18:50)
[2017-03-18] MEDS: CYANOCOBALAMIN (VITAMIN B-12) 1,000 MCG TABLET PO SCH (10:32)
--- NOTE | 2017-03-18 14:22 | ER Document Report ---
Doctor's Note Notes: 03/18/17 14:21 Rounds: No change in patient's condition reported. Vital signs are all normal. Patient appears to be medically stable for transfer or discharge. Adriana Garg MD
[2017-03-18] MEDS: LACTULOSE SYRUP 20 GM/30 ML UDCUP PO SCH (15:10)
[2017-03-18] MEDS: GABAPENTIN 300 MG CAPSULE PO SCH (15:11)
[2017-03-18] MEDS: LEVETIRACETAM 500 MG TABLET PO SCH (15:11)
[2017-03-19] MEDS: LACTULOSE SYRUP 20 GM/30 ML UDCUP PO SCH ×3 (03:41→14:33)
[2017-03-19] MEDS: GABAPENTIN 300 MG CAPSULE PO SCH ×3 (03:42→14:32)
[2017-03-19] MEDS: LEVETIRACETAM 500 MG TABLET PO SCH ×3 (03:42→14:32)
--- NOTE | 2017-03-19 09:46 | ER Document Report ---
Doctor's Note Notes: 03/19/17 09:45 Patient remains calm and cooperative here. Patient is resting comfortably in bed without complaint. Vital signs reviewed and stable.
[2017-03-19] MEDS: BUSPIRONE HCL 10 MG TABLET PO SCH ×2 (10:27→18:43)
[2017-03-19] MEDS: AMLODIPINE BESYLATE 5 MG TABLET PO SCH (10:28)
[2017-03-19] MEDS: CHOLECALCIFEROL (D3) 1,000 UNIT TABLET PO SCH (10:28)
[2017-03-19] MEDS: CYANOCOBALAMIN (VITAMIN B-12) 1,000 MCG TABLET PO SCH (10:29)
[2017-03-19] MEDS: CLONIDINE HCL 0.1 MG TABLET PO PRN (10:30)
[2017-03-19] MEDS: VENLAFAXINE HCL 75 MG TABLET PO SCH (10:30)
[2017-03-19] MEDS: MULTIVITAMIN TABLET PO SCH (10:30)
[2017-03-19] MEDS: RISPERIDONE 0.25 MG TABLET PO SCH (10:31)
[2017-03-19] MEDS: FOLIC ACID 1 MG TABLET PO SCH (10:31)
[2017-03-20] MEDS: GABAPENTIN 300 MG CAPSULE PO SCH ×3 (00:31→22:13)
[2017-03-20] MEDS: LEVETIRACETAM 500 MG TABLET PO SCH ×3 (00:32→22:12)
[2017-03-20] MEDS: LACTULOSE SYRUP 20 GM/30 ML UDCUP PO SCH ×3 (00:32→22:13)
--- NOTE | 2017-03-20 08:25 | ER Document Report ---
Doctor's Note Notes: 03/20/17 08:47 61 yr old male as the rounding physician for our social hold patients, I have reviewed the chart, vitals, lab work. Patient has been examined and noted to be well appearing . I am awaiting social work input
[2017-03-20] MEDS: BUSPIRONE HCL 10 MG TABLET PO SCH ×2 (08:38→18:02)
[2017-03-20] MEDS: MULTIVITAMIN TABLET PO SCH (11:10)
[2017-03-20] MEDS: RISPERIDONE 0.25 MG TABLET PO SCH (11:10)
[2017-03-20] MEDS: FOLIC ACID 1 MG TABLET PO SCH (11:11)
[2017-03-20] MEDS: VENLAFAXINE HCL 75 MG TABLET PO SCH (11:11)
[2017-03-20] MEDS: AMLODIPINE BESYLATE 5 MG TABLET PO SCH (11:11)
[2017-03-20] MEDS: CHOLECALCIFEROL (D3) 1,000 UNIT TABLET PO SCH (11:11)
[2017-03-20] MEDS: DONEPEZIL HCL 5 MG TABLET PO SCH (11:11)
[2017-03-20] MEDS: CYANOCOBALAMIN (VITAMIN B-12) 1,000 MCG TABLET PO SCH (11:11)
[2017-03-21] MEDS: LACTULOSE SYRUP 20 GM/30 ML UDCUP PO SCH ×3 (05:43→22:26)
[2017-03-21] MEDS: GABAPENTIN 300 MG CAPSULE PO SCH ×3 (05:46→22:49)
[2017-03-21] MEDS: LEVETIRACETAM 500 MG TABLET PO SCH ×3 (05:47→22:26)
[2017-03-21] MEDS: BUSPIRONE HCL 10 MG TABLET PO SCH ×2 (08:20→18:21)
--- NOTE | 2017-03-21 09:38 | ER Document Report ---
Doctor's Note Notes: 03/21/17 09:37 As the rounding physician for our social patients, I have reviewed the chart, vitals, lab work. Patient has been examined and noted to be stable . I am awaiting mental health in put.
[2017-03-21] MEDS: CYANOCOBALAMIN (VITAMIN B-12) 1,000 MCG TABLET PO SCH (09:48)
[2017-03-21] MEDS: CHOLECALCIFEROL (D3) 1,000 UNIT TABLET PO SCH (09:48)
[2017-03-21] MEDS: VENLAFAXINE HCL 75 MG TABLET PO SCH (09:49)
[2017-03-21] MEDS: RISPERIDONE 0.25 MG TABLET PO SCH (09:49)
[2017-03-21] MEDS: DONEPEZIL HCL 5 MG TABLET PO SCH (09:49)
[2017-03-21] MEDS: AMLODIPINE BESYLATE 5 MG TABLET PO SCH (09:49)
[2017-03-21] MEDS: MULTIVITAMIN TABLET PO SCH (09:49)
[2017-03-21] MEDS: FOLIC ACID 1 MG TABLET PO SCH (11:23)
[2017-03-21] MEDS: CLONIDINE HCL 0.1 MG TABLET PO PRN ×2 (11:23→22:26)
[2017-03-22] MEDS: LACTULOSE SYRUP 20 GM/30 ML UDCUP PO SCH ×2 (06:56→13:56)
[2017-03-22] MEDS: LEVETIRACETAM 500 MG TABLET PO SCH ×2 (06:56→13:55)
[2017-03-22] MEDS: GABAPENTIN 300 MG CAPSULE PO SCH ×2 (06:56→13:55)
[2017-03-22] MEDS: DONEPEZIL HCL 5 MG TABLET PO SCH (09:24)
[2017-03-22] MEDS: BUSPIRONE HCL 10 MG TABLET PO SCH ×2 (09:24→18:06)
[2017-03-22] MEDS: CHOLECALCIFEROL (D3) 1,000 UNIT TABLET PO SCH (09:24)
[2017-03-22] MEDS: RISPERIDONE 0.25 MG TABLET PO SCH (09:25)
[2017-03-22] MEDS: MULTIVITAMIN TABLET PO SCH (09:25)
[2017-03-22] MEDS: AMLODIPINE BESYLATE 5 MG TABLET PO SCH (09:25)
[2017-03-22] MEDS: VENLAFAXINE HCL 75 MG TABLET PO SCH (09:30)
[2017-03-22] MEDS: CYANOCOBALAMIN (VITAMIN B-12) 1,000 MCG TABLET PO SCH (09:30)
--- NOTE | 2017-03-22 10:41 | ER Document Report ---
Doctor's Note Notes: 03/22/17 10:41 As the rounding physician for our psychiatric patients, I have reviewed the chart, vitals, lab work. Patient has been examined and noted to be . I am awaiting mental health in put. (BERONICA HART) As the rounding physician for our psychiatric patients, I have reviewed the chart, vitals, lab work. Patient has been examined and noted to be stable. I am awaiting mental health input. 03/22/17 11:02 (CYRUS MAURO)
[2017-03-22] MEDS: FOLIC ACID 1 MG TABLET PO SCH (13:56)
[2017-03-22] MEDS: CLONIDINE HCL 0.1 MG TABLET PO PRN (13:56)
[2017-03-23] MEDS: LEVETIRACETAM 500 MG TABLET PO SCH ×3 (02:18→14:18)
[2017-03-23] MEDS: GABAPENTIN 300 MG CAPSULE PO SCH ×3 (02:18→14:18)
[2017-03-23] MEDS: LACTULOSE SYRUP 20 GM/30 ML UDCUP PO SCH ×3 (02:19→14:17)
[2017-03-23] MEDS: BUSPIRONE HCL 10 MG TABLET PO SCH ×2 (08:04→18:23)
[2017-03-23] MEDS: CHOLECALCIFEROL (D3) 1,000 UNIT TABLET PO SCH (09:22)
[2017-03-23] MEDS: MULTIVITAMIN TABLET PO SCH (09:23)
[2017-03-23] MEDS: DONEPEZIL HCL 5 MG TABLET PO SCH (09:23)
[2017-03-23] MEDS: AMLODIPINE BESYLATE 5 MG TABLET PO SCH (09:23)
[2017-03-23] MEDS: RISPERIDONE 0.25 MG TABLET PO SCH (09:23)
[2017-03-23] MEDS: CLONIDINE HCL 0.1 MG TABLET PO PRN ×2 (09:26→10:15)
--- NOTE | 2017-03-23 09:39 | ER Document Report ---
Doctor's Note Notes: 03/23/17 09:37 Medical rounds: Chart reviewed and patient interviewed briefly. Vital signs remained stable. Laboratory values are satisfactory. Patient is confused but verbalizes no specific complaints. I am told by psychosocial services that several legal hurdles have been overcome and a bed offer at a long-term care facility is pending. He remains medically stable.
[2017-03-23] MEDS: CYANOCOBALAMIN (VITAMIN B-12) 1,000 MCG TABLET PO SCH (10:15)
[2017-03-23] MEDS: VENLAFAXINE HCL 75 MG TABLET PO SCH (10:15)
[2017-03-23] MEDS: FOLIC ACID 1 MG TABLET PO SCH (10:15)
[2017-03-24] MEDS: LACTULOSE SYRUP 20 GM/30 ML UDCUP PO SCH ×4 (00:57→23:38)
[2017-03-24] MEDS: GABAPENTIN 300 MG CAPSULE PO SCH ×4 (00:58→23:37)
[2017-03-24] MEDS: LEVETIRACETAM 500 MG TABLET PO SCH ×4 (00:59→23:37)
[2017-03-24] MEDS: CYANOCOBALAMIN (VITAMIN B-12) 1,000 MCG TABLET PO SCH (09:53)
[2017-03-24] MEDS: MULTIVITAMIN TABLET PO SCH (09:54)
[2017-03-24] MEDS: VENLAFAXINE HCL 75 MG TABLET PO SCH (09:54)
[2017-03-24] MEDS: CHOLECALCIFEROL (D3) 1,000 UNIT TABLET PO SCH (09:54)
[2017-03-24] MEDS: DONEPEZIL HCL 5 MG TABLET PO SCH (09:54)
[2017-03-24] MEDS: BUSPIRONE HCL 10 MG TABLET PO SCH ×2 (09:55→18:25)
[2017-03-24] MEDS: RISPERIDONE 0.25 MG TABLET PO SCH (09:56)
[2017-03-24] MEDS: AMLODIPINE BESYLATE 5 MG TABLET PO SCH (09:56)
[2017-03-24] MEDS: FOLIC ACID 1 MG TABLET PO SCH (09:57)
[2017-03-24] MEDS: CLONIDINE HCL 0.1 MG TABLET PO PRN (09:57)
--- NOTE | 2017-03-24 13:44 | ER Document Report ---
Doctor's Note Notes: 03/24/17 13:44 Medical rounds: Chart reviewed and patient interviewed briefly. Vital signs remain normal. Laboratory values satisfactory. Patient is alert, somewhat confused but cooperative. He denies any specific complaints. He remains medically stable, pending placement.
[2017-03-25] MEDS: GABAPENTIN 300 MG CAPSULE PO SCH ×3 (05:43→23:03)
[2017-03-25] MEDS: LACTULOSE SYRUP 20 GM/30 ML UDCUP PO SCH ×3 (05:43→23:02)
[2017-03-25] MEDS: LEVETIRACETAM 500 MG TABLET PO SCH ×3 (05:44→23:02)
[2017-03-25] MEDS: BUSPIRONE HCL 10 MG TABLET PO SCH ×2 (08:57→17:22)
[2017-03-25] MEDS: CLONIDINE HCL 0.1 MG TABLET PO PRN ×2 (10:09→23:04)
[2017-03-25] MEDS: DONEPEZIL HCL 5 MG TABLET PO SCH (10:11)
[2017-03-25] MEDS: MULTIVITAMIN TABLET PO SCH (10:11)
[2017-03-25] MEDS: CHOLECALCIFEROL (D3) 1,000 UNIT TABLET PO SCH (10:11)
[2017-03-25] MEDS: RISPERIDONE 0.25 MG TABLET PO SCH (10:11)
[2017-03-25] MEDS: AMLODIPINE BESYLATE 5 MG TABLET PO SCH (10:11)
[2017-03-25] MEDS: FOLIC ACID 1 MG TABLET PO SCH (10:11)
[2017-03-25] MEDS: CYANOCOBALAMIN (VITAMIN B-12) 1,000 MCG TABLET PO SCH (10:32)
[2017-03-25] MEDS: VENLAFAXINE HCL 75 MG TABLET PO SCH (10:33)
--- NOTE | 2017-03-25 14:22 | ER Document Report ---
Doctor's Note Notes: 03/25/17 14:21 Social rounds: Chart reviewed. No change in situation. Vital signs are all essentially normal. No new labs to review. Patient appears to be medically stable for transfer or discharge. Adriana Garg MD
[2017-03-26] MEDS: LEVETIRACETAM 500 MG TABLET PO SCH ×3 (06:13→23:50)
[2017-03-26] MEDS: LACTULOSE SYRUP 20 GM/30 ML UDCUP PO SCH ×3 (06:14→23:50)
[2017-03-26] MEDS: GABAPENTIN 300 MG CAPSULE PO SCH ×3 (06:14→23:50)
[2017-03-26] MEDS: BUSPIRONE HCL 10 MG TABLET PO SCH ×2 (07:44→18:11)
[2017-03-26] MEDS: CYANOCOBALAMIN (VITAMIN B-12) 1,000 MCG TABLET PO SCH (10:33)
[2017-03-26] MEDS: MULTIVITAMIN TABLET PO SCH (10:34)
[2017-03-26] MEDS: DONEPEZIL HCL 5 MG TABLET PO SCH (10:34)
[2017-03-26] MEDS: VENLAFAXINE HCL 75 MG TABLET PO SCH (10:35)
[2017-03-26] MEDS: AMLODIPINE BESYLATE 5 MG TABLET PO SCH (10:35)
[2017-03-26] MEDS: RISPERIDONE 0.25 MG TABLET PO SCH (10:36)
[2017-03-26] MEDS: CHOLECALCIFEROL (D3) 1,000 UNIT TABLET PO SCH (10:37)
[2017-03-26] MEDS: FOLIC ACID 1 MG TABLET PO SCH (10:37)
[2017-03-26] MEDS: CLONIDINE HCL 0.1 MG TABLET PO PRN (15:46)
[2017-03-26 17:01] VITALS: BP 141/60
[2017-03-27] MEDS: BUSPIRONE HCL 10 MG TABLET PO SCH (07:55)
--- NOTE | 2017-03-27 09:21 | ER Document Report ---
Doctor's Note Notes: 03/27/17 09:21 As the rounding physician for our psychiatric patients, I have reviewed the chart, vitals, lab work. Patient has been examined and noted to be stable . I am awaiting transfer to care facility
[2017-03-27] MEDS: CHOLECALCIFEROL (D3) 1,000 UNIT TABLET PO SCH (09:52)
[2017-03-27] MEDS: AMLODIPINE BESYLATE 5 MG TABLET PO SCH (09:53)
[2017-03-27] MEDS: RISPERIDONE 0.25 MG TABLET PO SCH (09:53)
[2017-03-27] MEDS: VENLAFAXINE HCL 75 MG TABLET PO SCH (09:53)
[2017-03-27] MEDS: CYANOCOBALAMIN (VITAMIN B-12) 1,000 MCG TABLET PO SCH (09:53)
[2017-03-27] MEDS: MULTIVITAMIN TABLET PO SCH (09:54)
[2017-03-27] MEDS: DONEPEZIL HCL 5 MG TABLET PO SCH (09:54)
[2017-03-27] MEDS: FOLIC ACID 1 MG TABLET PO SCH (11:07)
== END 2017-03-27 18:00 | disposition home health service (06) ==
LOC: ER 11:07
DX: F03.91 Unspecified dementia, unspecified severity, with behavioral disturbance (principal); E87.0 Hyperosmolality and hypernatremia; S61.411A Laceration without foreign body of right hand, initial encounter; S60.512A Abrasion of left hand, initial encounter; S80.812A Abrasion, left lower leg, initial encounter; S50.811A Abrasion of right forearm, initial encounter; X58.XXXA Exposure to other specified factors, initial encounter; I10 Essential (primary) hypertension; J45.909 Unspecified asthma, uncomplicated; Z78.1 Physical restraint status; Z75.1 Person awaiting admission to adequate facility elsewhere; Z88.8 Allergy status to other drugs, medicaments and biological substances; Z91.041 Radiographic dye allergy status; Z87.892 Personal history of anaphylaxis; Z88.0 Allergy status to penicillin
CPT/HCPCS: 99285; 96372; 36415; 82962; 85025; 80048; 81001; 93010; J1630; J3490 ×30; J3486